=== PATIENT | female | born 1960 | race Caucasian/White ===

== ENCOUNTER 2022-09-28 18:51 | Emergency (ER) | payer BC, SELFPAY ==
[2022-09-28] VITALS (17 sets, daily range): BP systolic 103–141; BP diastolic 68–101; PULSE 99–124; RESP 14–29; TEMP 36.7; O2SAT 100
--- NOTE | ~2022-09-28 | XR_ITS ---
EXAMINATION: XR chest 2V Exam Date/Time: 09/28/2022 19:52 CDT HISTORY: SOB, CP Comparison: . RESULT: Lines, tubes, and devices: None. Lungs and pleura: Ill-defined somewhat nodular appearing opacity in the right lower lung. Cardiomediastinal silhouette: Stable. Other: No acute osseous or upper abdominal finding. IMPRESSION: Nodular opacity in the right lower lung may represent a focus of pneumonia. Recommend follow-up chest radiograph, after appropriate therapy, to ensure resolution. Reviewed, dictated and finalized at location K. IMPRESSION: Nodular opacity in the right lower lung may represent a focus of pneumonia. Rec ommenluis armando follow-up chest radiograph, after appropriate therapy, to ensure resolut ion.
--- NOTE | ~2022-09-28 | CT_ITS ---
EXAMINATION: CTA chest PE protocol DATE: 09/28/2022 21:16 INDICATION: dyspnea TECHNIQUE: Computed tomography angiography (CTA) of the chest was performed with 100 mL Omnipaque-350 intravenous contrast timed to evaluate the pulmonary arteries. Coronal maximum intensity projection 3D-reconstructions were created by the technologist. The dose-length product (DLP) was 189.26 mGy-cm. Automated exposure control and iterative reconstruction technique were employed. COMPARISON: X-ray chest, same date. FINDINGS: Lung parenchyma and airways: Biapical pleural scarring. Lobulated, 2.5 cm mass with spiculated margin s in the right lower lobe. Scattered calcified granulomas. Pleura: Unremarkable. Thoracic inlet, axillae and chest wall: Bilateral breast augmentation. Thoracic aorta: Normal. Mediastinum: Calcified right hilar nodes. Heart and pericardium: Normal. Coronary artery calcifications: Mild. Upper abdomen: Diffuse fatty infiltration of the liver. Left adrenal adenoma. Bones: No acute osseous finding. Pulmonary arteries: Study quality: Adequate. No pulmonary emboli detected. IMPRESSION: No CT evidence of acute pulmonary embolus. 2.5 cm right lower lobe nodule, suspicious for neoplastic disease, consider tissue sampling or PET/CT for further evaluation. Hepatic steatosis. Reviewed, dictated and finalized at location K. IMPRESSION: No CT evidence of acute pulmonary embolus. 2.5 cm right lower lobe nodule, susp icious for neoplastic disease, consider tissue sampling or PET/CT for further e valuation. Hepatic steatosis.
--- NOTE | 2022-09-28 19:24 | ECG_ITS ---
Measurements Intervals [place] Rate: 110 P: 68 NC: 167 QRS: 62 QRSD: 74 T: 42 QT: 347 QTc: 470 Interpretive Statements SINUS TACHYCARDIA NONSPECIFIC ST ABNORMALITY BORDERLINE ECG NO PREVIOUS ECG AVAILABLE FOR COMPARISON Electronically Signed On 09-29-2022 13:18:28 CDT by Joe Puente M.D.
[2022-09-28 19:45] LABS: Basophils Percent Auto 0.4 % (0.2-1.2); Eosinophils Percent Auto 0.7 % (0-4.4); Hematocrit 26.8 % (37.0-47.0); Hemoglobin 8.1 g/dL (12.0-15.0); Immature Granulocyte Absolute 0.01 K/mm3 (0.00-0.031); Immature Granulocyte Percent A 0.2 % (0-0.5); Lymphocytes Absolute Auto 2.02 K/mm3 (0.9-3.2); Lymphocytes Percent Auto 44.3 % (18.3-44.2); Mean Corpuscular HGB Conc 30.2 g/dl (32-36); Mean Corpuscular Hemoglobin 24.3 pg (26-34); Mean Corpuscular Volume 80.5 fl (80-100); Mean Platelet Volume 9.1 fl (7.4-10.4); Monocytes Absolute Auto 0.3 K/mm3 (0.1-0.6); Monocytes Percent Auto 6.6 % (2.6-8.5); Neutrophils Absolute Auto 2.2 K/mm3 (1.3-6.7); Neutrophils Percent Auto 47.8 % (45.5-73.1); Platelet Count Result 368 k/mm3 (150-375); Red Blood Count 3.33 M/mm3 (4.2-5.4); Red Cell Distribution Width 25.2 % (11.5-14.5); White Blood Count 4.6 K/mm3 (4.5-10.0)
[2022-09-28 19:54] LABS: Alanine Aminotransferase 40 U/L (6-35); Albumin Level 3.3 g/dL (3.5-5.1); Alkaline Phosphatase 109 U/L (38-126); Anion Gap 10 mmol/L (8-16); Aspartate Amino Transferase 59 U/L (14-36); Bilirubin,Total 0.3 mg/dL (0.2-1.3); Blood Urea Nitrogen 6 mg/dL (7-17); Calcium 8.1 mg/dL (8.4-10.2); Carbon Dioxide 19 mmol/L (22-30); Chloride 103 mmol/L (98-107); Estimated CRCL calculation 92 ml/min; Estimated Glomerular Filt Rate > 60; Glucose 84 mg/dL (65-110); Lipase 52 U/L (23-300); Potassium 3.7 mmol/L (3.4-5.0); Sodium 132 mmol/L (137-145)
[2022-09-28 19:58] LABS: INR 1.4
[2022-09-28 19:59] LABS: Partial Thromboplastin Time 36.8 SECONDS (22.3-36.8)
[2022-09-28 20:08] LABS: Anisocytosis 1+ (NORMAL); Ovalocytes 1+ (NORMAL); Platelet Estimate Adequate (Adequate); Target Cells 1+ (NORMAL)
[2022-09-28 20:09] LABS: Schistocytes None Seen (NORMAL)
[2022-09-28 20:39] LABS: Troponin I < 0.012 ng/mL (0.000-0.034)
[2022-09-28 20:42] LABS: NT Pro B Type Natriuretic Pept 67 pg/mL (19.9-100)
[2022-09-28] MEDS: MORPHINE SULFATE (*CRX) 4 MG/ML INJ IV PUSH (20:51)
[2022-09-28] MEDS: ONDANSETRON INJ 4 MG/2 ML VIAL IV PUSH (22:14)
[2022-09-28 22:51] LABS: Troponin I < 0.012 ng/mL (0.000-0.034)
[2022-09-29 00:05] VITALS: PULSE 113; RESP 19
[2022-09-29 00:20] VITALS: BP 132/86; PULSE 112; RESP 18; O2SAT 100
--- NOTE | 2022-09-29 00:29 | ED.GENADULT ---
HPI - General Adult General Chief complaint: Shortness of Breath/Dyspnea Stated complaint: sob x2 months Time Seen by Provider: 09/28/22 20:04 History of Present Illness HPI narrative: Patient 62-year-old female who presents the emergency department with chief complaint of chest pain and shortness of breath. Patient reports has been having chest pain and shortness of breath for some time reports has been admitted at [facility] has been in the hospital for several days and discharged home and then went back to the emergency department and was discharged the patient reports that she came to our facility today because EMS would not transport her to [facility] as she requested The patient reports she is currently on blood thinners and has not missed any doses of her medication. Related Data Allergies Allergy/AdvReac Type Severity Reaction Status Date / Time No Known Allergies Allergy Verified 09/28/22 20:41 Review of Systems Review of Systems: A 10 system review of systems was completed on the patient and is negative except for what is stated in the HPI. Nursing and ancillary documentation was reviewed. Exam Narrative: GENERAL: Well-appearing, well-nourished, and in no acute distress. HEAD: Normocephalic, atraumatic. EYES: PERRLA and EOMI. ENT: Nares clear, no rhinorrhea or epistaxis. Mucous membranes moist. NECK: Supple. CHEST: Clear to auscultation. No respiratory distress. HEART: Regular rate and rhythm. No murmur heard. Normal peripheral pulses. ABDOMEN: Soft, nontender, nondistended, normal active bowel sounds. EXTREMITIES: Normal range of motion. No edema. SKIN: Warm, dry, no rash. NEURO: No focal deficits. Alert and oriented x3. PSYCH: Normal mood and affect. Course Vital Signs Vital signs: Vital Signs Temperature 36.7 C 09/28/22 19:17 Pulse Rate 114 H 09/28/22 19:17 Respiratory Rate 18 09/28/22 19:17 Blood Pressure 103/68 09/28/22 19:17 Pulse Oximetry 100 09/28/22 19:17 Oxygen Delivery Room Air 09/28/22 19:17 Temperature 36.7 C 09/28/22 19:17 Pulse Rate 112 H 09/29/22 00:20 Respiratory Rate 18 09/29/22 00:20 Blood Pressure 132/86 09/29/22 00:20 Pulse Oximetry 100 09/29/22 00:20 Oxygen Delivery Room Air 09/28/22 19:17 Medical Decision Making MDM Narrative Medical decision making narrative: Differential diagnosis includes ACS, pulmonary embolism, pneumothorax, Laboratory studies were obtained which showed a white count of 4.6 hemoglobin 8.1 electrolytes were within normal limits troponin was negative for 2 sets in the emergency department lipase was 52 CTA of the chest showed no evidence of pulmonary embolism did show evidence of a nodule that was concerning for neoplasm. Records were obtained from [facility] which showed the patient have a hemoglobin of 8.7 and her most recent admission therefore the patient has not had a significant change in her blood counts. The patient recently had had a pulmonary embolism but is currently not showing any evidence of PE The patient will be discharged home to follow-up with her primary care provider Vital Signs Vital Signs: Vital Signs Temperature 36.7 C 09/28/22 19:17 Pulse Rate 114 H 09/28/22 19:17 Respiratory Rate 18 09/28/22 19:17 Blood Pressure 103/68 09/28/22 19:17 Pulse Oximetry 100 09/28/22 19:17 Oxygen Delivery Room Air 09/28/22 19:17 Temperature 36.7 C 09/28/22 19:17 Pulse Rate 112 H 09/29/22 00:20 Respiratory Rate 18 09/29/22 00:20 Blood Pressure 132/86 09/29/22 00:20 Pulse Oximetry 100 09/29/22 00:20 Oxygen Delivery Room Air 09/28/22 19:17 Lab Data 09/28/22 19:38 09/28/22 19:38 Labs: Lab Results 09/28/22 09/28/22 09/28/22 Range/Units 19:36 19:38 22:11 WBC 4.6 (4.5-10.0) K/mm3 RBC 3.33 L (4.2-5.4) M/mm3 Hgb 8.1 L (12.0-15.0) g/dL Hct 26.8 L (37.0-47.0) % MCV 80.5 (80-100) fl MCH 24.3 L (2
[2022-09-29 00:59] VITALS: BP 122/98; PULSE 110; RESP 16; O2SAT 100
== END 2022-09-29 01:01 | disposition home or self-care (01) ==
PROVIDERS: Emergency Provider Emergency Medicine
DX: R07.9 Chest pain, unspecified (principal); G89.29 Other chronic pain; R91.1 Solitary pulmonary nodule; R00.0 Tachycardia, unspecified; Z79.01 Long term (current) use of anticoagulants
CPT/HCPCS: 36415; 71046; 71275; 80053; 83690; 83880; 84484; 85025; 85610; 85730; 93005; 96374; 96375; 99284; J2270; J2405; Q9967

== ENCOUNTER 2024-02-26 14:52 | Inpatient (IN) | payer BC, SELFPAY ==
[2024-02-26] VITALS (8 sets, daily range): BP systolic 101–202; BP diastolic 77–148; PULSE 82–127; RESP 15–20; TEMP 36.5–36.6; O2SAT 95–100; BMI 21.3
--- NOTE | ~2024-02-26 | CT_ITS ---
EXAMINATION: CT brain wo con DATE: 02/26/2024 15:56 INDICATION: Seizure. TECHNIQUE: Computed tomography (CT) of the head was performed without intravenous contrast. The mA wa s adjusted according to patient size. Iterative reconstruction technique was employed. The dose-lengt h product was 605.33 mGy-cm. COMPARISON: None FINDINGS: There is no intracranial hemorrhage, acute infarction, or abnormal intracranial mass lesion . The ventricles are normal in size. There is mild mucosal thickening in the paranasal sinuses. The o rbits are normal. There is a trace right mastoid effusion. IMPRESSION: 1. Normal brain. Reviewed, dictated and finalized at location A. ERCIAL MANAGEMENT ACCOUNTANT IMPRESSION: 1. Normal brain.
--- NOTE | ~2024-02-26 | XR_ITS ---
EXAMINATION: XR chest 2V DATE: 02/26/2024 16:02 INDICATION: Seizure TECHNIQUE: frontal and lateral views of the chest were obtained. COMPARISON: Chest radiograph and CT dated 09/28/2022 FINDINGS: The lungs are clear with no focal airspace opacities, pulmonary edema, pleural effusion or pneumothor ax. Heart size is normal with small bilateral paracardial fat pads. Calcified right hilar lymph nodes consistent with old granulomatous disease. Mild thoracic spondylosis. IMPRESSION: 1. No acute cardiopulmonary disease. Reviewed, dictated and finalized at location B. ER MAKING SUPERVISOR
--- NOTE | ~2024-02-26 | XR_ITS ---
HISTORY: pain COMPARISON: None TECHNIQUE: 4 views of the performed FINDINGS: Subacute fracture of the proximal second and third metatarsal is suspected. Subacute fracture of the distal third metatarsal is also suspected Diffuse bony demineralization is present. Moderate soft tissue swelling forefoot is noted. IMPRESSION: Subacute fractures of the proximal second and third tarsal and distal fourth metatarsal are suspected for which traumatic history is needed. Diffuse bony demineralization and forefoot soft tissue swelling. Reviewed, dictated and finalized at location A. GIRDLER IMPRESSION: Subacute fractures of the proximal second and third tarsal and dis mary fourth metatarsal are suspected for which traumatic history is needed. Diffuse bony demineralization and forefoot soft tissue swelling.
[2024-02-26] MEDS: ONDANSETRON INJ 4 MG/2 ML VIAL IV PUSH (15:17)
--- NOTE | 2024-02-26 15:37 | ECG_ITS ---
Test Date: 2024-02-26 16:30:15 Measurements Intervals [place] Rate: 133 P: -40 MD: 115 QRS: 51 QRSD: 85 T: -43 QT: 349 QTc: 521 Interpretive Statements SINUS OR ECTOPIC ATRIAL TACHYCARDIA WITH SHORT MD INTERVAL LEFT VENTRICULAR HYPERTROPHY AND ST-T CHANGE ST-T WAVE ABNORMALITY IN ANTEROLAT/INF LEADS- CONSIDER ISCHEMIA BASELINE ARTIFACT- I, II, III, AVR, AVL, AVF, V1-V2 ABNORMAL ECG No previous ECG available for comparison Electronically Signed On 02-26-2024 18:35:58 [employer] AND BUILDING DECORATOR by Bull Machado D.O.
[2024-02-26] MEDS: LORazepam INJ (*CRX) 2 MG/ML VIAL IV PUSH (16:12)
--- NOTE | 2024-02-26 16:14 | PC.NURSE ---
This RN walked into pt. room and found pt. having a tonic clonic seizure. Seizure pads already in place and suction set up. Pt immediately rolled to L. side and this RN called for help. Md Craven and multiple RNs at bedside. 02 remained >95% on RA for entirety of seizure. mouth suctioned. Pt. bleeding from mouth. See MAR for interventions.
--- NOTE | 2024-02-26 16:37 | ED.SEIZURE ---
HPI - Seizure General Chief Complaint: Seizure Stated Complaint: Seizure Time Seen by Provider: 02/26/24 15:27 History of Present Illness HPI Narrative: patient is a 63-year-old female who presents ER after having a seizure at home. Witnessed by son. Lasted 2 minutes. Patient has history of seizures but is unsure what medication she has taken in the past. She does reports she is drinking alcohol. She has history of alcohol abuse. Unsure if she has alcohol withdrawal seizures. Patient orient x4 here but then had a 2nd seizure that lasted another minute and half. She received Ativan. She did have tongue biting. Prior to seizing patient is having nausea vomiting that she reports has been going on throughout the day. patient reports history of lung cancer that was treated with chemotherapy years ago she no longer requires any intervention. Related Data Home Medications Medication Instructions Recorded Confirmed No Home Medications 02/26/24 02/26/24 Allergies Allergy/AdvReac Type Severity Reaction Status Date / Time No Known Allergies Allergy Verified 02/26/24 20:38 Review of Systems Review of Systems: All systems reviewed & are unremarkable except as noted in HPI and below Constitutional: Constitutional: Reports no additional constitutional complaints ENT: Reports system reviewed and no additional complaints, except as documented Cardiovascular: Cardiovascular: Reports no additional cardiovascular complaints Respiratory: Respiratory: Reports no additional respiratory complaints Gastrointestinal: Gastrointestinal: Reports no additional gastrointestinal complaints [facility] Past Medical History Medical History (Updated 02/26/24 @ 22:29 by Dallin Craven MD) Alcohol abuse Lung cancer Seizures Family History Family History (Updated 02/26/24 @ 20:32 by Erin Leal RN) Father Cancer Mother Hypertension Social History Social History Smoking packs per day: 0.5 Smoking cigarettes per day: 10.0 Years smoked: 30 Smoking pack-years: 15.00 Smoking status: Current every day smoker Alcohol intake: current Drinks per week: 40 Substance use: former Substance use type: marijuana Do You Feel Safe in your Home?: Yes Lack of Transportation: YES Lack of Food: Sometimes True Current Housing: I Have Housing Concerned About Future Housing: No Difficulty Paying Gas/Electric Bills: No Difficulty Paying for Meds: No Currently Unemployed: No Education: High School Diploma/GED Difficulty w/ Childcare or Family Care: No Spiritual care concerns: No Exam Narrative: GENERAL: chronically ill-appearing, well-nourished, and in no acute distress. HEAD: Normocephalic, atraumatic. EYES: PERRL and EOMI. ENT: Mucous membranes moist. tongue bruising and abrasions bilaterally NECK: Supple. CHEST: Clear to auscultation. No respiratory distress. HEART: Tachycardic regular. Normal peripheral pulses. ABDOMEN: Soft, nontender, nondistended,. EXTREMITIES: Normal range of motion. No edema. SKIN: Warm, dry, no rash. NEURO: Alert and oriented x3. Course Course Emergency Course: Suspect withdrawal seizures. After 2nd seizure patient is now awake alert and oriented. Potassium critically low and replaced orally and through IV K rider. Patient received a L of fluid and BMP will be recheck. Discussed case with the motor vehicle emissions inspector as well as Nephrology patient will go to the unit initially. Patient with abnormal EKG but no chest pain. Patient initially had blood pressures in the 200s but it began to go down. Suspect patient is actually quite dry and is having strain pattern. Troponin added on. discussed case with Neurology as well feels it would be best to manage patient's withdrawal into not giving antiepileptics at this time. Vital Signs Vital signs: Vital Signs Temperature 97.7 F 02/26/24 15:04 Pulse Rate 122 H 02/26/24 15:04 Respiratory Rate 16 02/26/24 15:04 Blood Pressure 202/123 H 02/26/24 15:04 Pulse Oximetry 100 02/26/24 15:04 Temperature 97.8 F 02/26/24 20:30 Pulse Rate 90 02/26/24 22:00 Respiratory Rate 20 02/26/24 22:00 Blood Pressure 101/77 02/26/24 22:00 Pulse Oximetry 98 02/26/24 22:00 Oxygen Delivery Room Air 02/26/24 20:30 MDM - Seizure Lab Data 02/26/24 16:18 02/26/24 18:42 Labs: Lab Results 02/26/24 02/26/24 02/26/24 Range/Units 16:18 16:42 18:42 WBC 11.8 H (4.5-10.0) K/mm3 RBC 4.48 (4.2-5.4) M/mm3 Hgb 14.6 D (12.0-15.0) g/dL Hct 40.7 (37.0-47.0) % MCV 90.8 (80-100) fl MCH 32.6 (26-34) pg MCHC 35.9 (32-36) g/dl RDW 12.5 (11.5-14.5) % Plt Count 283 (150-375) k/mm3 MPV 10.2 (7.4-10.4) fl Immature Gran % (Auto) 0.8 H (0-0.5) % Neut % (Auto) 82.5 H (45.5-73.1) % Lymph % (Auto) 6.7 L (18.3-44.2) % [place] % (Auto) 9.0 H (2.6-8.5) % Eos % (Auto) 0.7 (0-4.4) % Baso % (Auto) 0.3 (0.2-1.2) % Lymph # (Auto) 0.79 L (0.9-3.2) K/mm3 [place] # (Auto) 1.1 H (0.1-0.6) K/mm3 Eos # (Auto) 0.1 (0-0.3) K/mm3 Baso # (Auto) 0.0 (0.0-0.1) K/mm3 Abs Immat Gran (auto) 0.09 H (0.00-0.031) K/mm3 Absolute Neuts (auto) 9.7 H (1.3-6.7) K/mm3 Absolute Nucleated RBC 0.000 (0.0-0.012) K/mm3 Nucleated RBC % 0.0 (0.0-0.2) % Sodium 118 L* 120 L (137-145) mmol/L Potassium 2.7 L* 3.1 L (3.4-5.0) mmol/L Chloride 78 L 79 L (98-107) mmol/L Carbon Dioxide 22 19 L (22-30) mmol/L Anion Gap 18 H 22 H (4-12) mmol/L BUN 15 D 15 (7-17) mg/dL Creatinine 0.80 0.70 (0.7-1.0) mg/dL Estim Creat Clear Calc 59 67 ml/min Estimated GFR > 60 > 60 (59 - ) Glucose 188 H 172 H (65-110) mg/dL Calcium 10.6 H 10.7 H (8.4-10.2) mg/dL Total Bilirubin 1.3 (0.2-1.3) mg/dL AST 50 H (14-36) U/L ALT 24 (6-35) U/L Alkaline Phosphatase 91 (38-126) U/L Total Protein 9.0 H (6.3-8.2) g/dL Albumin 5.3 H (3.5-5.1) g/dL Urine Color Dark yellow (Yellow) Urine Appearance Clear (Clear) Urine pH 5.5 (5.0-9.0) Ur Specific [place] 1.022 (1.001-1.035) Urine Protein 4+ H (Negative) mg/dL Urine Glucose (UA) Negative (Negative) mg/dL Urine Ketones 1+ H (Negative) mg/dL Ur Blood (Man) Non-hemolyzed trace H (Negative) Urine Nitrate Negative (Negative) Urine Bilirubin Negative (Negative) Urine Urobilinogen 1.0 (<2.0) mg/dL Add Ur Microanalysis Reviewed Leukocyte Esterase Rfl Trace H (Negative) RICHARD/UL Urine RBC 3-5 H (0-2) /hpf Urine WBC 21-50 H (0-3) /hpf Ur Squamous Epith Cells None seen (Few) /hpf Urine Bacteria None seen /hpf Urine Casts 6-10 Hyaline Casts Present (None) /lpf Urine Opiates Screen Negative (Negative) Urine Methadone Screen Negative (Negative) Ur Barbiturates Screen Negative (Negative) Ur Phencyclidine Scrn Negative (Negative) Ur Amphetamine Screen Negative (Negative) U Benzodiazepines Scrn Negative (Negative) Urine Cocaine Screen Negative (Negative) U Cannabinoids Screen Positive A (Negative) Ethyl Alcohol < 10 (<10) mg/dL Imaging Data Radiologist's impression: ITS Impressions Head CT 02/26/24 16:02 IMPRESSION: 1. Normal brain. Chest X-Ray 02/26/24 16:04 IMPRESSION: 1. No acute cardiopulmonary disease. ECG Data EKG #1: ECG completion date: 02/26/24 ECG completion time: 16:30 EKG Interpretation: tachycardia (133), sinus rhythm, non-specific ST changes, normal QRS and other ( LVH with strain pattern) Critical Care Time Critical Care Time Critical Care Time: Yes Total Critical Care Time: 35 Discharge Plan Discharge Clinical Impression: Alcohol withdrawal, Seizure, Acute hyponatremia, Acute hypokalemia Patient Disposition: Still a Patient Condition: Serious
[2024-02-26 16:38] LABS: Basophils Percent Auto 0.3 % (0.2-1.2); Eosinophils Absolute Auto 0.1 K/mm3 (0-0.3); Eosinophils Percent Auto 0.7 % (0-4.4); Hematocrit 40.7 % (37.0-47.0); Hemoglobin 14.6 g/dL (12.0-15.0); Immature Granulocyte Absolute 0.09 K/mm3 (0.00-0.031); Immature Granulocyte Percent A 0.8 % (0-0.5); Lymphocytes Absolute Auto 0.79 K/mm3 (0.9-3.2); Lymphocytes Percent Auto 6.7 % (18.3-44.2); Mean Corpuscular HGB Conc 35.9 g/dl (32-36); Mean Corpuscular Hemoglobin 32.6 pg (26-34); Mean Corpuscular Volume 90.8 fl (80-100); Mean Platelet Volume 10.2 fl (7.4-10.4); Monocytes Absolute Auto 1.1 K/mm3 (0.1-0.6); Neutrophils Absolute Auto 9.7 K/mm3 (1.3-6.7); Neutrophils Percent Auto 82.5 % (45.5-73.1); Platelet Count Result 283 k/mm3 (150-375); Red Blood Count 4.48 M/mm3 (4.2-5.4); Red Cell Distribution Width 12.5 % (11.5-14.5); White Blood Count 11.8 K/mm3 (4.5-10.0)
[2024-02-26 16:47] LABS: Ethanol < 10 mg/dL (<10)
[2024-02-26] MEDS: SODIUM CHLORIDE 0.9% IV 1,000 ML 999 ML IV CONT (16:48)
[2024-02-26 17:03] LABS: Alanine Aminotransferase 24 U/L (6-35); Albumin Level 5.3 g/dL (3.5-5.1); Alkaline Phosphatase 91 U/L (38-126); Anion Gap 18 mmol/L (4-12); Aspartate Amino Transferase 50 U/L (14-36); Bilirubin,Total 1.3 mg/dL (0.2-1.3); Blood Urea Nitrogen 15 mg/dL (7-17); Calcium 10.6 mg/dL (8.4-10.2); Carbon Dioxide 22 mmol/L (22-30); Chloride 78 mmol/L (98-107); Estimated CRCL calculation 59 ml/min; Estimated Glomerular Filt Rate > 60; Glucose 188 mg/dL (65-110); Potassium 2.7 mmol/L (3.4-5.0); Sodium 118 mmol/L (137-145)
[2024-02-26 17:04] LABS: Add Urine Microscopic? YES; Appearance Urine Clear (Clear); Bacteria Urine None Seen /hpf; Bilirubin Urine Negative (Negative); Blood Urine Non-Hemolyzed Trace (Negative); Color Urine Dark Yellow (Yellow); Glucose Urine UA Negative (Negative); Hyaline Casts Urine Present /lpf; Ketones Urine 1+ mg/dL (Negative); Leukocyte Esterase Ur Trace LEU/UL (Negative); Need Manual Microscopic Reviewed; Nitrate Urine Negative (Negative); Protein Urine 4+ mg/dL (Negative); Specific Grav Ur 1.022 (1.001-1.035); Squamous Epithelial Cell Urine None Seen /hpf (Few); WBC Urine 21-50 /hpf (0-3); pH Urine 5.5 (5.0-9.0)
[2024-02-26 17:09] LABS: Amphetamine Screen Urine Negative (Negative); Barbiturate Screen Urine Negative (Negative); Benzodiazepines Screen Urine Negative (Negative); Cannabinoid Screen Urine Positive (Negative); Cocaine Screen Urine Negative (Negative); Methadone Screen Urine Negative (Negative); Opiate Screen Urine Negative (Negative); Phencyclidine Screen Urine Negative (Negative)
[2024-02-26] MEDS: POTASSIUM CHLORIDE 20 MEQ ER TABLET 40 MEQ PO (17:25)
[2024-02-26] MEDS: diazePAM INJ (*CRX) 10 MG/2 ML SYRINGE 5 MG IV PUSH (17:27)
[2024-02-26] MEDS: POTASSIUM CHLORIDE INJ 40 MEQ in SODIUM CHLORIDE 0.9% IV 500 ML 130 MEQ IVPB (17:36)
[2024-02-26 19:16] LABS: Anion Gap 22 mmol/L (4-12); Blood Urea Nitrogen 15 mg/dL (7-17); Calcium 10.7 mg/dL (8.4-10.2); Carbon Dioxide 19 mmol/L (22-30); Chloride 79 mmol/L (98-107); Estimated CRCL calculation 67 ml/min; Estimated Glomerular Filt Rate > 60; Glucose 172 mg/dL (65-110); Potassium 3.1 mmol/L (3.4-5.0); Sodium 120 mmol/L (137-145)
--- NOTE | 2024-02-26 19:34 | PC.NURSE ---
This RN unable to collect 2nd set of blood cultures. Jeanne VAN notified. Phlebotomy notified that pt. needs 2nd set.
--- NOTE | 2024-02-26 19:39 | PC.NURSE ---
RN unable to arouse patient to complete admission questions at present; RN placed two calls to patient's son, Salvatore, with no answer and was unable to leave a message r/t automated message stating the the user's voicemail box was full. RN attempted to wake patient again with no response. Reported to MERINGUER Tracie that admission is unable to be completed at this time; unable to recall patient history.
--- NOTE | 2024-02-26 20:00 | PC.NURSE ---
HITESH Hodges notified that ED staff were unable to acquire blood cultures.
--- NOTE | 2024-02-26 20:40 | PC.NURSE ---
Patient presents as awake and alert upon arrival to ICU. Admission questions completed via patient; Patient denies use of any home medication; Patient denies allergies.
--- NOTE | 2024-02-26 20:43 | ADMGEN ---
This patient, Candace Melo, was admitted to Intensive Care Unit-6 at 2015. Patient/family oriented to hospital policies and general routines including ID bracelet, bed and alarms, visiting hours, pain management, procedures, bathroom and other care routines, personal items, smoking policy, room service/diet, and visiting hours. Information on how to activate the Rapid Response Team has been discussed. Patient/Family are encouraged to report perceived risks to care and to ask questions if they do not understand what they are told or what they should do.
[2024-02-26] MEDS: SODIUM CHLORIDE 0.9% IV 1,000 ML 125 ML IV CONT (21:13)
[2024-02-26 22:14] LABS: Magnesium 2.1 mg/dL (1.6-2.3)
--- NOTE | 2024-02-26 23:35 | P.HP_ITS ---
H&P: HPI History of Present Illness Date/Time: 02/26/24 23:35 Chief Complaint: Seizure Narrative: 63-year-old female with past medical history lung cancer with partial pneumonectomy, anxiety and depression and history of chronic alcohol abuse who presented to the ER with witnessed tonic clonic seizure. Source of information is from ER records/ER physician report patient herself is only alert oriented to her name in cannot provide any meaningful history. The patient was witnessed to have approximately 2 minute long tonic clonic seizure by her son who lives with her. She tells me that she has had a history of prior seizures 2 times in the past but she cannot tell me when these episodes occurred or if she was on any seizure medications in the past. Review of patient's external electronic medications from pharmacy demonstrate prior prescriptions for Librium in October but no listed seizure medications. The patient tells me that she drinks alcohol of varying amounts. She is vague and states that she drinks ?some?. She had evidently reported to the ER providers that she drinks about 6 beers a day. The patient was reportedly alert orient x4 in the ER but had a witnessed tonic clonic seizure in the ER as well lasting 1.5 minutes. She received Ativan. She did have evidence of tongue trauma after the 2nd seizure. Reportedly had prior to her 2nd seizure the patient did have some vomiting that was witnessed and had evidently been having some vomiting at home. At the time my evaluation the cuca macias actually denied having any recent nausea or vomiting. However the patient also at the time my evaluation which was several hours after her seizure could not tell me what city she lived in. She could not tell me her date of or the current date. When I asked her what doctor she saw in the past for her seizures she gave her own last name. Labs performed in the ER demonstrated a critically low sodium at 01:18 with repeat sodium of 120 approximately 3 hours later. Review of Systems Review of Systems: ROS unobtainable: Yes unobtainable due to mental status PMFSH Past Medical History Medical History (Updated 02/27/24 @ 08:19 by eMg Ortega DO) Alcohol abuse Lung cancer Seizures Surgical History Surgical History (Updated 02/26/24 @ 23:52 by Meg Ortega DO) History of pneumonectomy Family History Family History Father Cancer Mother Hypertension Social History Social History (Updated 02/27/24 @ 08:06 by Meg Ortega DO) Social History: Patient reports that she lives with her son Salvatore. She has 3 children. She has history of chronic alcohol abuse. She is vague in her report of the amount of alcohol that she drinks. She denied illicit substance use but urine drug screen positive for marijuana. She is a current smoker. She cannot tell me how much she smokes daily. Code status: Full code Surrogate decision maker: Salvatore (son) Smoking packs per day: 0.5 Smoking cigarettes per day: 10.0 Years smoked: 30 Smoking pack-years: 15.00 Smoking status: Current every day smoker Alcohol intake: current Drinks per week: 40 Substance use: former Substance use type: marijuana Do You Feel Safe in your Home?: Yes Lack of Transportation: YES Lack of Food: Sometimes True Current Housing: I Have Housing Concerned About Future Housing: No Difficulty Paying Gas/Electric Bills: No Difficulty Paying for Meds: No Currently Unemployed: No Education: High School Diploma/GED Difficulty w/ Childcare or Family Care: No Spiritual care concerns: No Meds Home Medications and Allergies Home Medications Medication Instructions Recorded Confirmed Type No Home Medications 02/26/24 02/26/24 History Allergies Allergy/AdvReac Type Severity Reaction Status Date / Time No Known Allergies Allergy Verified 02/26/24 20:38 Vital Signs Vital Signs - 24 hr 02/26/24 15:04 02/26/24 15:16 02/26/24 16:17 Temperature 97.7 F Pulse Rate 122 H 127 H Respiratory Rate 16 19 Blood Pressure 202/123 H 200/148 H Pulse Oximetry 100 99 97 Oxygen Delivery Room Air 02/26/24 16:40 02/26/24 17:28 02/26/24 17:35 Temperature Pulse Rate 119 H 101 H Respiratory Rate 16 20 Blood Pressure 176/109 H Pulse Oximetry 99 95 Oxygen Delivery Room Air 02/26/24 18:38 02/26/24 20:30 02/26/24 20:30 Temperature 97.8 F Pulse Rate 115 H 99 Respiratory Rate 15 20 Blood Pressure 135/97 H 163/119 H Pulse Oximetry 96 97 Oxygen Delivery Room Air 02/26/24 20:30 02/26/24 22:00 02/26/24 22:00 Temperature Pulse Rate 89 82 90 Respiratory Rate 20 Blood Pressure 101/77 Pulse Oximetry 98 Oxygen Delivery 02/26/24 23:17 Temperature Pulse Rate Respiratory Rate Blood Pressure Pulse Oximetry Oxygen Delivery Room Air Exam Narrative: Weight 60 kg BMI 21.3 Const: Other: No acute distress, disheveled, poor hygiene, well-developed well-nourished HENMT: Other: Mucous membranes are tacky, evidence of trauma to the tongue without active bleeding, head is normocephalic atraumatic Eyes: Other: Pupils are equal and reactive, no scleral icterus extraocular movements are intact although patient does have difficulty following instructions for neurologic exam Neck: Other: No JVD, irregular thyroid Resp: Other: Decreased breath sounds bilaterally, no increased work of breathing Cardio: Other: Mildly tachycardic, regular rhythm, 2+ bilateral radial pedal pulses GI: Other: Soft, distended, nontender, positive bowel sounds Skin: Other: Diaphoretic, warm to touch, bruising to the left 5th toe Neuro: Other: Patient is alert oriented to name only, she cannot state her date of or how old she is, as she does not know that name of the hospital and states that she does not know what town she lives in, she does not have any obvious tremor and does not have any difficulty with heel to durbin or [id number], speech is clear but slow, cranial nerves 2-12 appear to be grossly intact but there is some difficulty with the exam due to patient having issues with confusion and following commands. Extrem: Other: No cyanosis, no edema, mild clubbing to nail beds Psych: Other: Awake, alert to self, Confused but calm, poor judgment and insight H&P: Results Labs Labs: Laboratory Tests 02/26/24 16:18 02/26/24 18:42 02/26/24 02/26/24 02/26/24 16:18 16:42 18:42 WBC 11.8 H RBC 4.48 Hgb 14.6 D Hct 40.7 MCV 90.8 MCH 32.6 MCHC 35.9 RDW 12.5 Plt Count 283 MPV 10.2 Immature Gran % (Auto) 0.8 H Neut % (Auto) 82.5 H Lymph % (Auto) 6.7 L [place] % (Auto) 9.0 H Eos % (Auto) 0.7 Baso % (Auto) 0.3 Lymph # (Auto) 0.79 L [place] # (Auto) 1.1 H Eos # (Auto) 0.1 Baso # (Auto) 0.0 Abs Immat Gran (auto) 0.09 H Absolute Neuts (auto) 9.7 H Absolute Nucleated RBC 0.000 Nucleated RBC % 0.0 Sodium 118 L* 120 L Potassium 2.7 L* 3.1 L Chloride 78 L 79 L Carbon Dioxide 22 19 L Anion Gap 18 H 22 H BUN 15 D 15 Creatinine 0.80 0.70 Estim Creat Clear Calc 59 67 Estimated GFR > 60 > 60 Glucose 188 H 172 H Calcium 10.6 H 10.7 H Phosphorus Magnesium Total Bilirubin 1.3 AST 50 H ALT 24 Alkaline Phosphatase 91 Troponin I Total Protein 9.0 H Albumin 5.3 H Urine Color Dark yellow Urine Appearance Clear Urine pH 5.5 Ur Specific [place] 1.022 Urine Protein 4+ H Urine Glucose (UA) Negative Urine Ketones 1+ H Ur Blood (Man) Non-hemolyzed trace H Urine Nitrate Negative Urine Bilirubin Negative Urine Urobilinogen 1.0 Add Ur Microanalysis Reviewed Leukocyte Esterase Rfl Trace H Urine RBC 3-5 H Urine WBC 21-50 H Ur Squamous Epith Cells None seen Urine Bacteria None seen Urine Casts 6-10 Hyaline Casts Present Urine Opiates Screen Negative Urine Methadone Screen Negative Ur Barbiturates Screen Negative Ur Phencyclidine Scrn Negative Ur Amphetamine Screen Negative U Benzodiazepines Scrn Negative Urine Cocaine Screen Negative U Cannabinoids Screen Positive A Ethyl Alcohol < 10 02/26/24 02/26/24 02/26/24 21:44 21:44 21:44 WBC RBC Hgb Hct MCV MCH MCHC RDW Plt Count MPV Immature Gran % (Auto) Neut % (Auto) Lymph % (Auto) [place] % (Auto) Eos % (Auto) Baso % (Auto) Lymph # (Auto) [place] # (Auto) Eos # (Auto) Baso # (Auto) Abs Immat Gran (auto) Absolute Neuts (auto) Absolute Nucleated RBC Nucleated RBC % Sodium Potassium Chloride Carbon Dioxide Anion Gap BUN Creatinine Estim Creat Clear Calc Estimated GFR Glucose Calcium Phosphorus 3.0 Cancelled Magnesium 2.1 Cancelled Total Bilirubin AST ALT Alkaline Phosphatase Troponin I 0.440 H* Total Protein Albumin Urine Color Urine Appearance Urine pH Ur Specific [place] Urine Protein Urine Glucose (UA) Urine Ketones Ur Blood (Man) Urine Nitrate Urine Bilirubin Urine Urobilinogen Add Ur Microanalysis Leukocyte Esterase Rfl Urine RBC Urine WBC Ur Squamous Epith Cells Urine Bacteria Urine Casts Hyaline Casts Urine Opiates Screen Urine Methadone Screen Ur Barbiturates Screen Ur Phencyclidine Scrn Ur Amphetamine Screen U Benzodiazepines Scrn Urine Cocaine Screen U Cannabinoids Screen Ethyl Alcohol Impressions Head CT 02/26/24 16:02 (personally reviewed and interpreted agree with radiologic interpretation) IMPRESSION: 1. Normal brain. Chest X-Ray 02/26/24 16:04 (personally reviewed and interpreted agree with radiologic interpretation) IMPRESSION: 1. No acute cardiopulmonary disease. EKG: Personally reviewed and interpreted agree with cardiology interpretation which is listed below. Measurements Intervals [place] Rate: 133 P: -40 LA: 115 QRS: 51 QRSD: 85 T: -43 QT: 349 QTc: 521 Interpretive Statements SINUS OR ECTOPIC ATRIAL TACHYCARDIA WITH SHORT LA INTERVAL LEFT VENTRICULAR HYPERTROPHY AND ST-T CHANGE ST-T WAVE ABNORMALITY IN ANTEROLAT/INF LEADS- CONSIDER ISCHEMIA BASELINE ARTIFACT- I, II, III, AVR, AVL, AVF, V1-V2 ABNORMAL ECG No previous ECG available for comparison Assessment and Plan Assessment and plan (1) Alcohol withdrawal: Qualifiers: Complication of substance-induced condition: uncomplicated Qualified Code(s): F10.930 - Alcohol use, unspecified with withdrawal, uncomplicated Code(s): F10.939 - Alcohol use, unspecified with withdrawal, unspecified Status: Acute (2) Seizure: Code(s): R56.9 - Unspecified convulsions Status: Acute (3) Acute hyponatremia: Code(s): E87.1 - Hypo-osmolality and hyponatremia Status: Acute (4) Acute hypokalemia: Code(s): E87.6 - Hypokalemia Status: Acute (5) Elevated troponin: Code(s): R79.89 - Other specified abnormal findings of blood chemistry Status: Acute (6) Hypercalcemia: Code(s): E83.52 - Hypercalcemia Status: Acute (7) Hyperglycemia: Code(s): R73.9 - Hyperglycemia, unspecified Status: Acute (8) QT prolongation: Code(s): R94.31 - Abnormal electrocardiogram [ECG] [EKG] Status: Acute Plan Patient is at to seizures likely due to alcohol withdrawal however some component seizure due to hyponatremia cannot be ruled out. Patient has been placed on seizure precautions durbin being monitored in the ICU. Will continue neuro checks q.2-4 hours. Will continue check CIWA scores and treat as appropriate with Ativan p.r.n. and Librium scheduled. Will provide thiamine supplementation. Will check B12 and folic acid levels. Patient does have marked hyponatremia. Hyponatremia is likely due to combination of beer proteinemia and hypovolemic hyponatremia. Serial sodium levels were to be monitored. However, 1 of the serial draws was not obtained. Patient had increase in sodium of value of 10 in a 12 hour interval. Normal saline has subsequently been discontinued and D5 water as been ordered D5 water was ordered around 06:00. Subsequently a will repeat sodiums starting at 10:00.. Orders have been placed for serial sodium monitoring q.4 hours. Nephrology has been consulted. Awaiting further recommendations. Patient did have some mild hypokalemia and received oral supplementation in the ER. Repeat potassium level had improved but was somewhat lower end of normal. Will give 1 more dose of oral potassium supplementation. Magnesium and phosphorus levels were obtained and were normal. Patient has hypercalcemia likely due to hypovolemia however will check vitamin-D level, and PTH to rule out other metabolic considerations. The patient was mildly hyperglycemic. Will check A1c with a.m. labs. Patient had abnormal EKG and subsequent had on troponin was mildly elevated but repeat troponin is trending down. Patient's EKG did demonstrate elevated QT interval at 05:21. Possibly due to electrolyte disturbances. Will monitor telemetry closely and avoid QT prolonging medications. 65 minute spent critical care activities. Due to a high probability of clinically significant, life threatening deterioration, the patient required my highest level of preparedness to intervene emergently and I personally spent this critical care time directly and personally managing the patient. This critical care time included obtaining a history; examining the patient; pulse oximetry; ordering and review of studies; arranging urgent treatment with development of a management plan; evaluation of patient's response to treatment; frequent reassessment; and discussions with other providers. It was exclusive of separately billable procedures and treating other patients and teaching time. Please see Assessment and Plan section and the rest of the note for further information on patient assessment and treatment. Quality VTE Prophylaxis VTE prophylaxis: pharmacologic ordered (Lovenox 40 mg subQ daily.) Hospitalist [facility] Advance Care Plan I have confirmed that the patient's Advanced Care Plan is present, code status is documented, or surrogate decision maker is listed in patient medical record.: Yes Medication Reconciliation I have utilized all available resources to obtain, update and review the patients current medications (includes all prescriptions, OTC, herbals, cannabis, and nutritional supplements).: Yes
[2024-02-27] VITALS (14 sets, daily range): BP systolic 112–168; BP diastolic 78–114; PULSE 66–101; RESP 14–21; TEMP 36.4–37.1; O2SAT 95–100
--- NOTE | 2024-02-27 | ECHO_ITS ---
Patient Info Name: Candace Melo Age: 63 years : 1960 Gender: Female Ht: 66 in Wt: 132 lbs BSA: 1.67 m2 HR: 70 bpm Heart Rhythm: Sinus Rhythm Technical Quality: Good Exam Date: 02/27/2024 1:50 PM Exam Location: Echo Lab Patient Status: Inpatient Admit Date: 02/26/2024 Staff Ordering Physician: Abrahan Moore MD Storage Manager: Pennie Christianson RDCS Attending Provider: Karthik Bliss MD Exam Type: CA echo doppler color flow Study Info Indications - elevated trop Complete two-dimensional, color flow and Doppler transthoracic echocardiogram is performed. Summary 1. Complete two-dimensional, color flow and Doppler transthoracic echocardiogram is performed. 2. Left ventricular chamber dimension is normal. 3. Left ventricular systolic function is normal, estimated at 65-70%. 4. There is mildly increased left ventricular wall thickness. 5. The left ventricular diastolic function is grade I diastolic dysfunction. 6. The apical cap is akinetic. 7. The apical inferior wall, and apical anterior wall are hypokinetic. 8. Left atrial chamber dimension is mildly enlarged. 9. There is mild tricuspid valve regurgitation. 10. There is mild pulmonic regurgitation. Left Ventricle Left ventricular chamber dimension is normal. Left ventricular systolic function is normal, estimated at 65-70%. There is mildly increased left ventricular wall thickness. The left ventricular diastolic function is grade I diastolic dysfunction. The apical cap is akinetic. The apical inferior wall, and apical anterior wall are hypokinetic. All other naranjo appear normal. Right Ventricle Right ventricular chamber dimension is normal. Right ventricular systolic function is normal. Left Atria Left atrial chamber dimension is mildly enlarged. Right Atria Right atrial chamber dimension is normal. Atrial Septum Intact interatrial septum visualized by color flow imaging. Aortic Valve The aortic valve is trileaflet. There is mild aortic valve sclerosis. There is no aortic valve stenosis. There is trace aortic valve regurgitation. Pulmonic Valve The pulmonic valve is normal. There is no pulmonic valve stenosis. There is mild pulmonic regurgitation. Mitral Valve The mitral valve has normal leaflets. There is no mitral valve stenosis. There is trace mitral valve regurgitation. Tricuspid Valve The tricuspid valve leaflets are normal. There is no significant tricuspid valve stenosis. There is mild tricuspid valve regurgitation. No pulmonary hypertension, estimated pulmonary arterial systolic pressure is 32 mmHg. Pericardium/Pleural The pericardium appears normal. There is no pericardial effusion. Inferior Vena Cava Normal inferior vena cava with >50% collapse upon inspiration consistent with normal right atrial pressure, 10 mmHg. Aorta The aortic root size at the sinus of Valsalva is normal. Left Ventricular Outflow Tract Name Value Normal LVOT 2D LVOT Diameter 2.0 cm LVOT Doppler LVOT Peak Gradient 5 mmHg LVOT Mean Gradient 3 mmHg LVOT VTI 19 cm LVOT VTI/AV VTI Ratio 0.9 LVOT Stroke Volume 57 ml LVOT CO 5.5 l/min LVOT CI 3.3 l/min/m2 Pulmonic Valve Name Value Normal PV Doppler PV Peak Gradient 3 mmHg Mitral Valve Name Value Normal MV Doppler MV Decel Stephenson 529 cm/s2 MV PHT 32 ms MV Area (PHT) 6.9 cm2 4.0-5.0 MV Diastolic Function MV E Peak Velocity 58 cm/s MV A Peak Velocity 77 cm/s MV E/A 0.8 MV Decel Time 109 ms MV Annular TDI MV E/e' (Septal) 13.1 <=8.0 MV E/e' (Lateral) 18.5 <=8.0 MV E/e' (Average) 15.8 Tricuspid Valve Name Value Normal TV Regurgitation Doppler TR Peak Velocity 235 cm/s TR Peak Gradient 8 mmHg Estimated PAP/RSVP RA Pressure 10 mmHg <=5 PA Systolic Pressure 32 mmHg <36 RV Systolic Pressure 32 mmHg <36 Aortic Valve Name Value Normal AV Doppler AV Peak Velocity 126 cm/s AV Peak Gradient 6 mmHg AV Mean Gradient 3 mmHg AV VTI 21 cm AV Area (Cont Eq VTI) 2.7 cm2 >=3.0 AV Area (Cont Eq Delta) 2.7 cm2 AV Regurgitation 2D LVOT Area 3.1 cm2 Ventricles Name Value Normal LV Dimensions 2D/MM IVS Diastolic Thickness (2D) 1.0 cm 0.6-1.0 LVID Diastole (2D) 4.0 cm 3.8-5.2 LVIW Diastolic Thickness (2D) 1.0 cm 0.6-0.9 LVID Systole (2D) 2.7 cm 2.2-3.5 LVOT Diameter 2.0 cm LV Mass (2D Cubed) 130.94 g 67.00-162.00 LV Mass Index (2D Cubed) 78 g/m2 43-95 Relative Wall Thickness (2D) 0.52 LV Fractional Shortening/Ejection Fraction 2D/MM LV Fractional Shortening (2D) 33 % 27-45 LV EF (2D Teicholz) 62 % 54-74 LV Diastolic Volume (4C MOD) 88 ml LV EF (4C MOD) 62 % LV Diastolic Volume (2C MOD) 82 ml LV EF (2C MOD) 66 % LV Diastolic Volume (BP MOD) 87 ml 46-106 LV Diastolic Volume Index (BP MOD) 52 ml/m2 29-61 LV Systolic Volume (BP MOD) 32 ml 14-42 LV Systolic Volume Index (BP MOD) 19 ml/m2 8-24 LV EF (BP MOD) 63 % 54-74 LV Diastolic Length (4C) 7.9 cm LV Systolic Length (4C) 6.1 cm LV Stroke Volume (4C MOD) 54 ml Atria Name Value Normal LA Dimensions LA Volume (4C A-L) 37 ml LA Volume (BP A-L) 39 ml RA Dimensions RA Area (4C) 8.9 cm2 <=18.0 Wall Motion Scoring Wall Motion Scoring Index: 1.24 Report Signatures
[2024-02-27 00:37] LABS: Glucose Point of Care 146 mg/dl (65-105)
[2024-02-27] MEDS: chlordiazePOXIDE (*CRX) 25 MG CAPSULE PO ×5 (00:42→23:57)
[2024-02-27 05:03] LABS: MRSA (PCR) NOT DETECTED (NOT DETECTE)
[2024-02-27 05:44] LABS: Hematocrit 35.8 % (37.0-47.0); Hemoglobin 12.6 g/dL (12.0-15.0); Mean Corpuscular HGB Conc 35.2 g/dl (32-36); Mean Corpuscular Hemoglobin 32.8 pg (26-34); Mean Corpuscular Volume 93.2 fl (80-100); Mean Platelet Volume 9.4 fl (7.4-10.4); Platelet Count Result 224 k/mm3 (150-375); Red Blood Count 3.84 M/mm3 (4.2-5.4); Red Cell Distribution Width 12.7 % (11.5-14.5); White Blood Count 9.5 K/mm3 (4.5-10.0)
[2024-02-27] MEDS: SODIUM CHLORIDE 0.9% IV 1,000 ML 125 ML IV CONT (05:50)
[2024-02-27 06:04] LABS: Hemoglobin A1C 4.9 % (<5.7)
[2024-02-27 06:05] LABS: Alanine Aminotransferase 20 U/L (6-35); Alkaline Phosphatase 63 U/L (38-126); Anion Gap 7 mmol/L (4-12); Aspartate Amino Transferase 38 U/L (14-36); Bilirubin,Total 1.1 mg/dL (0.2-1.3); Blood Urea Nitrogen 11 mg/dL (7-17); Carbon Dioxide 26 mmol/L (22-30); Chloride 95 mmol/L (98-107); Creatine Kinase 71 U/L (30-135); Estimated CRCL calculation 91 ml/min; Estimated Glomerular Filt Rate > 60; Glucose 105 mg/dL (65-110); Potassium 3.4 mmol/L (3.4-5.0); Sodium 128 mmol/L (137-145)
[2024-02-27 06:07] LABS: Parathyroid Intact 28.8 pg/mL (14.5-75.2)
[2024-02-27] MEDS: DEXTROSE 5% 1,000 ML 1,000 ML 100 ML IV CONT (06:46)
[2024-02-27 07:11] LABS: Folic Acid 15.5 ng/mL (2.76->20)
[2024-02-27 07:15] LABS: Vitamin D 25 Hydroxy 25.4 ng/mL
[2024-02-27 07:22] LABS: Troponin I 0.304 ng/mL (0.000-0.034)
[2024-02-27] MEDS: THIAMINE HCL 100 MG TABLET PO (07:48)
[2024-02-27] MEDS: ENOXAPARIN 40 MG/0.4 ML SYRINGE SUB-Q (07:51)
--- NOTE | 2024-02-27 09:24 | ECG_ITS ---
Test Date: 2024-02-27 10:04:02 Measurements Intervals [place] Rate: 89 P: 31 MN: 170 QRS: 33 QRSD: 80 T: -38 QT: 429 QTc: 524 Interpretive Statements SINUS RHYTHM MARKED T-WAVE ABNORMALITY, CONSIDER ANTEROLATERAL ISCHEMIA MODERATE T-WAVE ABNORMALITY, CONSIDER INFERIOR ISCHEMIA BASELINE ARTIFACT- I, II, III, AVR, AVL, AVF, V1-V2 ABNORMAL ECG Compared to ECG 02/26/2024 16:30:15 HEART RATE HAS DECREASED Electronically Signed On 02-27-2024 10:10:34 ORACLE DRM CONSULTANT by Bull Machado D.O.
[2024-02-27 10:29] LABS: Sodium 126 mmol/L (137-145)
--- NOTE | 2024-02-27 10:39 | PC.NURSE ---
Abnormal EKG reviewed with Dr. Moore
--- NOTE | 2024-02-27 10:56 | P.PNIM_ITS ---
Progress Note: A&P Assessment and Plan (1) Alcohol related seizure: Code(s): R56.9 - Unspecified convulsions Status: Acute (2) Acute hyponatremia: Code(s): E87.1 - Hypo-osmolality and hyponatremia Status: Acute (3) Acute hypokalemia: Code(s): E87.6 - Hypokalemia Status: Acute (4) Abnormal ECG: Code(s): R94.31 - Abnormal electrocardiogram [ECG] [EKG] Status: Acute (5) QT prolongation: Code(s): R94.31 - Abnormal electrocardiogram [ECG] [EKG] Status: Acute Plan Seizure: Code(s): R56.9 - Unspecified convulsions Status: Acute Assessment and Plan: likely secondary to either hyponatremia or alcohol withdrawal. not on any anti epileptic drugs. In management of sodium as below continue seizure precautions she is currently on scheduled Librium and p.r.n. Ativan Neurologist is following, appreciate neurologist input Hyponatremia: Code(s): E87.1 - Hypo-osmolality and hyponatremia Status: Acute Assessment and Plan: patient presented with sodium of 118 treated with isotonic fluids sodium increased to quickly to 128. changed to dextrose. Repeat sodium was 126. Continue D5 for another 4 hours and recheck BMP and then manage accordingly. patient is a heavy beer drinker Nephrology has been consulted. Elevated troponin: Code(s): R79.89 - Other specified abnormal findings of blood chemistry Status: Acute Assessment and Plan: slightly elevated troponin with normal EKG with no chest pain. Possible Myocardial injury due alcohol intoxication Add aspirin check echocardiogram consult cardiology telemetry monitoring QT prolongation: Code(s): R94.31 - Abnormal electrocardiogram [ECG] [EKG] Status: Acute Assessment and Plan: could be secondary to electrolyte abnormalities. Avoid QT prolongation medication and has possible telemetry monitoring cardiology consultation Subjective Date/time seen: 02/27/24 10:56 Interval history: I saw exam patient today, patient is lethargic, has no complaints, denies headache, no seizure over the night. Patient knew she had a seizure before, not clear if that was induced by alcohol withdrawal. No seizure overnight Exam Narrative: GENERAL: Lethargic in no acute distress. Well-nourished. - EYES: EOMI. Anicteric. - HENT: Moist mucous membranes. - LUNGS: Clear to auscultation bilateral ly, no wheezing, rhonchi, or rales. - CARDIOVASCULAR: Regular rate and rhyth m. No murmur. No JVD. - ABDOMEN: Soft, non-tender and non-dist ended. No palpable masses. - EXTREMITIES: No edema. Peripheral puls es 2+. Non-tender. - NEUROLOGIC: No focal neurological defi cits. CN II-XII grossly intact. - PSYCHIATRIC: Awake, Alert and oriented to time. mood and affect, anxious. - SKIN: No rashes or lesions. Warm. - LYMPH: No cervical lymphadenopathy. Objective Data Vital Signs Vital Signs: Vital Signs - 24 hr 02/26/24 15:04 02/26/24 15:16 02/26/24 16:17 Temperature 97.7 F Pulse Rate 122 H 127 H Respiratory Rate 16 19 Blood Pressure 202/123 H 200/148 H Pulse Oximetry 100 99 97 Oxygen Delivery Room Air 02/26/24 16:40 02/26/24 17:28 02/26/24 17:35 Temperature Pulse Rate 119 H 101 H Respiratory Rate 16 20 Blood Pressure 176/109 H Pulse Oximetry 99 95 Oxygen Delivery Room Air 02/26/24 18:38 02/26/24 20:30 02/26/24 20:30 Temperature 97.8 F Pulse Rate 115 H 99 Respiratory Rate 15 20 Blood Pressure 135/97 H 163/119 H Pulse Oximetry 96 97 Oxygen Delivery Room Air 02/26/24 20:30 02/26/24 22:00 02/26/24 22:00 Temperature Pulse Rate 89 82 90 Respiratory Rate 20 Blood Pressure 101/77 Pulse Oximetry 98 Oxygen Delivery 02/26/24 23:17 02/27/24 00:00 02/27/24 00:00 Temperature 97.5 F L Pulse Rate 92 92 Respiratory Rate 20 Blood Pressure 112/78 Pulse Oximetry 95 Oxygen Delivery Room Air 02/27/24 02:00 02/27/24 04:00 02/27/24 04:00 Temperature 97.8 F Pulse Rate 97 87 Respiratory Rate 15 17 Blood Pressure 142/94 H 168/114 H Pulse Oximetry 100 99 Oxygen Delivery Room Air 02/27/24 04:00 02/27/24 05:36 02/27/24 07:59 Temperature Pulse Rate 99 96 Respiratory Rate 18 Blood Pressure 157/95 H Pulse Oximetry 95 Oxygen Delivery Room Air 02/27/24 08:00 02/27/24 08:00 02/27/24 10:00 Temperature 98.7 F Pulse Rate 93 89 96 Respiratory Rate 19 14 Blood Pressure 140/93 H 135/86 Pulse Oximetry 96 98 Oxygen Delivery 02/27/24 10:00 Temperature Pulse Rate 96 Respiratory Rate Blood Pressure Pulse Oximetry Oxygen Delivery Intake/Output Intake/Output: Intake & Output 02/24/24 02/25/24 02/26/24 02/27/24 23:59 23:59 23:59 23:59 Intake Total 1570 1480 Output Total 150 1500 Balance 1420 -20 Meds/Results Medications: Active Medications Generic Name Dose Route Start Last Admin Trade Name Freq PRN Reason Stop Dose Admin Acetaminophen 650 mg 02/26/24 18:43 Acetaminophen 325 Mg Tablet PO Q4H PRN Mild Pain (1-3) or Fever Chlordiazepoxide HCl 25 mg 02/27/24 00:00 02/27/24 05:51 Chlordiazepoxide (*Crx) 25 Mg Capsule PO 25 mg Q6HR WILFRIDO Administration Enoxaparin Sodium 40 mg 02/27/24 09:00 02/27/24 07:51 Enoxaparin 40 Mg/0.4 Ml Syringe SUB-Q 40 mg DAILY WILFRIDO Administration Folic Acid 1 mg 02/28/24 09:00 Folic Acid 1 Mg Tablet PO DAILY WILFRIDO Ceftriaxone Sodium 1 gm in 50 mls @ 100 mls/hr 02/27/24 18:00 Rocephin 1 Gm/Ns 50 Ml IVPB Q24H WILFRIDO Dextrose 1,000 mls @ 100 mls/hr 02/27/24 06:30 02/27/24 06:46 Dextrose 5% 1,000 Ml IV CONT 100 mls/hr .Q10H WILFRIDO Administration Lorazepam 2 mg 02/26/24 23:44 Lorazepam Inj (*Crx) 2 Mg/Ml Vial IV PUSH Q2H PRN CIWA > 15 Lorazepam 2 mg 02/26/24 23:44 Lorazepam Inj (*Crx) 2 Mg/Ml Vial IV PUSH Q4H PRN CIWA 8-15 Ondansetron HCl 4 mg 02/26/24 18:43 Ondansetron Inj 4 Mg/2 Ml Vial IV PUSH Q4H PRN Nausea Perflutren Lipid Microsphere 0 ml 11/13/24 09:23 Perflutren Lipid Microspheres 1.5 Ml Vial Diluted To 10 Ml Total Volume IV PUSH 03/01/24 09:23 ONCE PRN adequate visualization Protocol Thiamine HCl 100 mg 02/27/24 09:00 02/27/24 07:48 Thiamine Hcl 100 Mg Tablet PO 100 mg QAM WILFRIDO Administration Radiology Results: ITS Impressions Head CT 02/26/24 16:02 IMPRESSION: 1. Normal brain. Chest X-Ray 02/26/24 16:04 IMPRESSION: 1. No acute cardiopulmonary disease. Labs Labs: Laboratory Results - last 24 hr 02/26/24 02/26/24 02/26/24 16:18 16:42 18:42 WBC 11.8 H RBC 4.48 Hgb 14.6 D Hct 40.7 MCV 90.8 MCH 32.6 MCHC 35.9 RDW 12.5 Plt Count 283 MPV 10.2 Immature Gran % (Auto) 0.8 H Neut % (Auto) 82.5 H Lymph % (Auto) 6.7 L [place] % (Auto) 9.0 H Eos % (Auto) 0.7 Baso % (Auto) 0.3 Lymph # (Auto) 0.79 L [place] # (Auto) 1.1 H Eos # (Auto) 0.1 Baso # (Auto) 0.0 Abs Immat Gran (auto) 0.09 H Absolute Neuts (auto) 9.7 H Absolute Nucleated RBC 0.000 Nucleated RBC % 0.0 Sodium 118 L* 120 L Potassium 2.7 L* 3.1 L Chloride 78 L 79 L Carbon Dioxide 22 19 L Anion Gap 18 H 22 H BUN 15 D 15 Creatinine 0.80 0.70 Estim Creat Clear Calc 59 67 Estimated GFR > 60 > 60 Glucose 188 H 172 H POC Capillary Glucose Hemoglobin A1c Calcium 10.6 H 10.7 H Phosphorus Magnesium Total Bilirubin 1.3 AST 50 H ALT 24 Alkaline Phosphatase 91 Total Creatine Kinase Troponin I Total Protein 9.0 H Albumin 5.3 H Vitamin B12 Vitamin D 25-Hydroxy Folate TSH (Reflex) PTH Intact Urine Color Dark yellow Urine Appearance Clear Urine pH 5.5 Ur Specific [place] 1.022 Urine Protein 4+ H Urine Glucose (UA) Negative Urine Ketones 1+ H Ur Blood (Man) Non-hemolyzed trace H Urine Nitrate Negative Urine Bilirubin Negative Urine Urobilinogen 1.0 Add Ur Microanalysis Reviewed Leukocyte Esterase Rfl Trace H Urine RBC 3-5 H Urine WBC 21-50 H Ur Squamous Epith Cells None seen Urine Bacteria None seen Urine Casts 6-10 Hyaline Casts Present Nasal MRSA (PCR) Urine Opiates Screen Negative Urine Methadone Screen Negative Ur Barbiturates Screen Negative Ur Phencyclidine Scrn Negative Ur Amphetamine Screen Negative U Benzodiazepines Scrn Negative Urine Cocaine Screen Negative U Cannabinoids Screen Positive A Ethyl Alcohol < 10 02/26/24 02/26/24 02/26/24 21:44 21:44 21:44 WBC RBC Hgb Hct MCV MCH MCHC RDW Plt Count MPV Immature Gran % (Auto) Neut % (Auto) Lymph % (Auto) [place] % (Auto) Eos % (Auto) Baso % (Auto) Lymph # (Auto) [place] # (Auto) Eos # (Auto) Baso # (Auto) Abs Immat Gran (auto) Absolute Neuts (auto) Absolute Nucleated RBC Nucleated RBC % Sodium Potassium Chloride Carbon Dioxide Anion Gap BUN Creatinine Estim Creat Clear Calc Estimated GFR Glucose POC Capillary Glucose Hemoglobin A1c Calcium Phosphorus 3.0 Cancelled Magnesium 2.1 Cancelled Total Bilirubin AST ALT Alkaline Phosphatase Total Creatine Kinase Troponin I 0.440 H* Total Protein Albumin Vitamin B12 Vitamin D 25-Hydroxy Folate TSH (Reflex) PTH Intact Urine Color Urine Appearance Urine pH Ur Specific [place] Urine Protein Urine Glucose (UA) Urine Ketones Ur Blood (Man) Urine Nitrate Urine Bilirubin Urine Urobilinogen Add Ur Microanalysis Leukocyte Esterase Rfl Urine RBC Urine WBC Ur Squamous Epith Cells Urine Bacteria Urine Casts Hyaline Casts Nasal MRSA (PCR) Urine Opiates Screen Urine Methadone Screen Ur Barbiturates Screen Ur Phencyclidine Scrn Ur Amphetamine Screen U Benzodiazepines Scrn Urine Cocaine Screen U Cannabinoids Screen Ethyl Alcohol 02/27/24 02/27/24 02/27/24 00:33 03:49 05:34 WBC 9.5 RBC 3.84 L Hgb 12.6 Hct 35.8 L MCV 93.2 MCH 32.8 MCHC 35.2 RDW 12.7 Plt Count 224 MPV 9.4 Immature Gran % (Auto) Neut % (Auto) Lymph % (Auto) [place] % (Auto) Eos % (Auto) Baso % (Auto) Lymph # (Auto) [place] # (Auto) Eos # (Auto) Baso # (Auto) Abs Immat Gran (auto) Absolute Neuts (auto) Absolute Nucleated RBC Nucleated RBC % Sodium 128 L Potassium 3.4 Chloride 95 L Carbon Dioxide 26 Anion Gap 7 BUN 11 Creatinine 0.50 L Estim Creat Clear Calc 91 Estimated GFR > 60 Glucose 105 POC Capillary Glucose 146 H Hemoglobin A1c 4.9 Calcium 9.0 Phosphorus Magnesium Total Bilirubin 1.1 AST 38 H ALT 20 Alkaline Phosphatase 63 Total Creatine Kinase 71 Troponin I Total Protein 7.0 Albumin 4.0 Vitamin B12 453.0 Vitamin D 25-Hydroxy 25.4 Folate 15.5 TSH (Reflex) 1.480 PTH Intact 28.8 Urine Color Urine Appearance Urine pH Ur Specific [place] Urine Protein Urine Glucose (UA) Urine Ketones Ur Blood (Man) Urine Nitrate Urine Bilirubin Urine Urobilinogen Add Ur Microanalysis Leukocyte Esterase Rfl Urine RBC Urine WBC Ur Squamous Epith Cells Urine Bacteria Urine Casts Hyaline Casts Nasal MRSA (PCR) Not detected Urine Opiates Screen Urine Methadone Screen Ur Barbiturates Screen Ur Phencyclidine Scrn Ur Amphetamine Screen U Benzodiazepines Scrn Urine Cocaine Screen U Cannabinoids Screen Ethyl Alcohol 02/27/24 02/27/24 05:37 10:14 WBC RBC Hgb Hct MCV MCH MCHC RDW Plt Count MPV Immature Gran % (Auto) Neut % (Auto) Lymph % (Auto) [place] % (Auto) Eos % (Auto) Baso % (Auto) Lymph # (Auto) [place] # (Auto) Eos # (Auto) Baso # (Auto) Abs Immat Gran (auto) Absolute Neuts (auto) Absolute Nucleated RBC Nucleated RBC % Sodium 126 L Potassium Chloride Carbon Dioxide Anion Gap BUN Creatinine Estim Creat Clear Calc Estimated GFR Glucose POC Capillary Glucose Hemoglobin A1c Calcium Phosphorus Magnesium Total Bilirubin AST ALT Alkaline Phosphatase Total Creatine Kinase Troponin I 0.304 H* D Total Protein Albumin Vitamin B12 Vitamin D 25-Hydroxy Folate TSH (Reflex) PTH Intact Urine Color Urine Appearance Urine pH Ur Specific [place] Urine Protein Urine Glucose (UA) Urine Ketones Ur Blood (Man) Urine Nitrate Urine Bilirubin Urine Urobilinogen Add Ur Microanalysis Leukocyte Esterase Rfl Urine RBC Urine WBC Ur Squamous Epith Cells Urine Bacteria Urine Casts Hyaline Casts Nasal MRSA (PCR) Urine Opiates Screen Urine Methadone Screen Ur Barbiturates Screen Ur Phencyclidine Scrn Ur Amphetamine Screen U Benzodiazepines Scrn Urine Cocaine Screen U Cannabinoids Screen Ethyl Alcohol
--- NOTE | 2024-02-27 11:27 | P.CONNEU_ITS ---
Assessment and Plan Assessment and plan (1) Alcohol related seizure: Code(s): R56.9 - Unspecified convulsions Status: Acute (2) Acute hyponatremia: Code(s): E87.1 - Hypo-osmolality and hyponatremia Status: Acute (3) Acute hypokalemia: Code(s): E87.6 - Hypokalemia Status: Acute Plan 1. Alcohol withdrawal seizure 2. Possibility of underlying seizure disorder could be kept in mind 3. Acute electrolyte imbalance with hyponatremia and hypokalemia. Once the intracranial bleed was ruled out and considering the previous history patient was admitted to the hospital for the ongoing care of alcoholism ,related seizures, Ativan initially IV push q.2 hours p.r.n. along with the antibiotics. Subsequently an EEG will be obtained Consult date: 02/27/24 HPI: Candace Melo is a 63 year old female Admitted to the hospital subsequent to having had a seizure at home witnessed by her son and the whole episode lasted for 2minutes but patient does have ongoing history of seizure disorder though it was not clear what medication she has been taking. It was also reported that she drinks alcohol heavy the history of alcohol abuse and was not sure whether at this time she had the alcohol withdrawal or not at the time of initial evaluation in the emergency room she was oriented x4 but subsequently had a 2nd seizure in the ER this lasted for a minute and half at that time she received Ativan intravenously though she was noted to have tongue bite, but subsequently having nausea and vomiting which was also going on throughout the day. She is not known to be allergic to any medications. She does have ongoing history of alcohol abuse, seizure disorder, and history of carcinoma of the lung she has history of years smoked 30 with 15 smoking pack years and currently everyday smoker and alcohol intake 40 drinks per week. Initial exam in the emergency room was grossly nonfocal. Subsequent to the 2nd seizure he was awake alert her potassium was low she receives IV K rider L of fluid her initial blood pressure was 202/123 with pulse rate of 122 and pulse ox of 100% she was noted to abnormal EKG her initial he was normal, BMP revealed sodium 120 potassium 3.1 chloride 79 BUN was 15 with creatinine of 0.70, drug screen was positive for cannabinoids and alcohol level was less than 10 CT of the head was negative for the intracranial bleed chest x-ray was negative for the acute aspiration EKG was in sinus rhythm with no specific ST changes, x-ray chest was normal except calcified right hilar lymph nodes and mild thoracic spondylosis Review of Systems Review of Systems: All systems reviewed & are unremarkable except as noted in HPI and below PMFSH Past Medical History Medical History Alcohol abuse Lung cancer Seizures Surgical History Surgical History History of pneumonectomy Family History Family History Father Cancer Mother Hypertension Social History Social History Social History: Patient reports that she lives with her son Salvatore. She has 3 children. She has history of chronic alcohol abuse. She is vague in her report of the amount of alcohol that she drinks. She denied illicit substance use but urine drug screen positive for marijuana. She is a current smoker. She cannot tell me how much she smokes daily. Code status: Full code Surrogate decision maker: Salvatore (son) Smoking packs per day: 0.5 Smoking cigarettes per day: 10.0 Years smoked: 30 Smoking pack-years: 15.00 Smoking status: Current every day smoker Alcohol intake: current Drinks per week: 40 Substance use: former Substance use type: marijuana Do You Feel Safe in your Home?: Yes Lack of Transportation: YES Lack of Food: Sometimes True Current Housing: I Have Housing Concerned About Future Housing: No Difficulty Paying Gas/Electric Bills: No Difficulty Paying for Meds: No Currently Unemployed: No Education: High School Diploma/GED Difficulty w/ Childcare or Family Care: No Spiritual care concerns: No Meds Home Medications and Allergies Home Medications Medication Instructions Recorded Confirmed Type No Home Medications 02/26/24 02/26/24 History Allergies Allergy/AdvReac Type Severity Reaction Status Date / Time No Known Allergies Allergy Verified 02/26/24 20:38 Vital Signs Vital Signs - 24 hr 02/26/24 15:04 02/26/24 15:16 02/26/24 16:17 Temperature 36.5 C Pulse Rate 122 H 127 H Respiratory Rate 16 19 Blood Pressure 202/123 H 200/148 H Pulse Oximetry 100 99 97 Oxygen Delivery Room Air 02/26/24 16:40 02/26/24 17:28 02/26/24 17:35 Temperature Pulse Rate 119 H 101 H Respiratory Rate 16 20 Blood Pressure 176/109 H Pulse Oximetry 99 95 Oxygen Delivery Room Air 02/26/24 18:38 02/26/24 20:30 02/26/24 20:30 Temperature 36.6 C Pulse Rate 115 H 99 Respiratory Rate 15 20 Blood Pressure 135/97 H 163/119 H Pulse Oximetry 96 97 Oxygen Delivery Room Air 02/26/24 20:30 02/26/24 22:00 02/26/24 22:00 Temperature Pulse Rate 89 82 90 Respiratory Rate 20 Blood Pressure 101/77 Pulse Oximetry 98 Oxygen Delivery 02/26/24 23:17 02/27/24 00:00 02/27/24 00:00 Temperature 36.4 C L Pulse Rate 92 92 Respiratory Rate 20 Blood Pressure 112/78 Pulse Oximetry 95 Oxygen Delivery Room Air 02/27/24 02:00 02/27/24 04:00 02/27/24 04:00 Temperature 36.6 C Pulse Rate 97 87 Respiratory Rate 15 17 Blood Pressure 142/94 H 168/114 H Pulse Oximetry 100 99 Oxygen Delivery Room Air 02/27/24 04:00 02/27/24 05:36 02/27/24 07:59 Temperature Pulse Rate 99 96 Respiratory Rate 18 Blood Pressure 157/95 H Pulse Oximetry 95 Oxygen Delivery Room Air 02/27/24 08:00 02/27/24 08:00 02/27/24 10:00 Temperature 37.1 C Pulse Rate 93 89 96 Respiratory Rate 19 14 Blood Pressure 140/93 H 135/86 Pulse Oximetry 96 98 Oxygen Delivery 02/27/24 10:00 Temperature Pulse Rate 96 Respiratory Rate Blood Pressure Pulse Oximetry Oxygen Delivery Exam Narrative: today awake alert in no obvious acute distress, head normocephalic with no cranial bruits, ear nose throat examination normal, neck supple with no cervical bruit ,no thyromegaly ,no lymphadenopathy, heart regular with no murmur, lungs clear to auscultation with no rhonchi or crepitations, abdomen is soft nontender with normal bowel sounds, no organomegaly, her skin clear, neurologically she is awake alert oriented in being in the hospital, her speech is not dysphasic ,not dysarthric ,not dysphonic, pupils round regular, knowles of the vision full ,extraocular movements full with no nystagmus ,facial sensation intact ,face symmetrical ,tongue midline ,uvula midline, motor examination revealed her to have ability to move both upper and lower extremities and deep tendon reflexes are 1 to2+, plantar responses are downgoing ,there is no evidence of gross cerebellar deficit at this time. Results Labs 02/27/24 05:34 02/27/24 10:14 Labs: Short CBC 02/26/24 02/27/24 Range/Units 16:18 05:34 WBC 11.8 H 9.5 (4.5-10.0) K/mm3 Hgb 14.6 D 12.6 (12.0-15.0) g/dL Hct 40.7 35.8 L (37.0-47.0) % Plt Count 283 224 (150-375) k/mm3 BMP 02/26/24 02/26/24 02/27/24 16:18 18:42 05:34 Sodium 118 L* 120 L 128 L Potassium 2.7 L* 3.1 L 3.4 Chloride 78 L 79 L 95 L Carbon Dioxide 22 19 L 26 BUN 15 D 15 11 Creatinine 0.80 0.70 0.50 L Glucose 188 H 172 H 105 Calcium 10.6 H 10.7 H 9.0 02/27/24 10:14 Sodium 126 L Potassium Chloride Carbon Dioxide BUN Creatinine Glucose Calcium Cardiac Enzymes 02/26/24 02/27/24 02/27/24 Range/Units 21:44 05:34 05:37 Total Creatine Kinase 71 (30-135) U/L Troponin I 0.440 H* 0.304 H* D (0.000-0.034) ng/mL Liver Function 02/26/24 02/27/24 Range/Units 16:18 05:34 Total Bilirubin 1.3 1.1 (0.2-1.3) mg/dL AST 50 H 38 H (14-36) U/L ALT 24 20 (6-35) U/L Alkaline Phosphatase 91 63 (38-126) U/L Albumin 5.3 H 4.0 (3.5-5.1) g/dL Urine 02/26/24 Range/Units 16:42 Urine Color Dark yellow (Yellow) Urine Appearance Clear (Clear) Urine pH 5.5 (5.0-9.0) Ur Specific [place] 1.022 (1.001-1.035) Urine Protein 4+ H (Negative) mg/dL Urine Glucose (UA) Negative (Negative) mg/dL
--- NOTE | 2024-02-27 11:36 | P.CONIN_ITS ---
Assessment and Plan Assessment and plan (1) Hyponatremia: Code(s): E87.1 - Hypo-osmolality and hyponatremia Status: Acute Assessment and Plan: patient presented with sodium of 118 and was treated with isotonic fluids sodium increased to quickly to 128. Fluid was changed to dextrose. Repeat sodium was 126. Continue D5 for another 4 hours and recheck BMP and then manage accordingly. Nephrology has been consulted. Likely etiologies beer potomania as patient is a heavy beer drinker (2) Seizure: Code(s): R56.9 - Unspecified convulsions Status: Acute Assessment and Plan: patient presented with seizures which is likely secondary to either hyponatre jaime or alcohol withdrawal. Patient has history of alcohol withdrawal seizure in the past and is not on any anti epileptic drugs. In management of sodium as below continue seizure precautions she is currently on scheduled Librium and p.r.n. Ativan (3) Elevated troponin: Code(s): R79.89 - Other specified abnormal findings of blood chemistry Status: Acute Assessment and Plan: slightly elevated troponin with normal EKG with no chest pain. This could be secondary to seizures or electrolyte abnormalities Add aspirin check echocardiogram consult cardiology telemetry monitoring (4) QT prolongation: Code(s): R94.31 - Abnormal electrocardiogram [ECG] [EKG] Status: Acute Assessment and Plan: could be secondary to electrolyte abnormalities. Avoid QT prolongation medication and has possible telemetry monitoring cardiology consultation Plan DVT prophylaxis - Lovenox Nutrition - diet order Code Status - Full Code incentive spirometry Total Critical Care Time - 32 minutes Due to a high probability of clinically significant, life threatening deterioration, the patient required my highest level of preparedness to interv ana maría emergently and I personally spent this critical care time directly and personally managing the patient. This critical care time included obtaining a history; examining the patient; pulse oximetry; ordering and review of studies; arranging urgent treatment with development of a management plan; evaluation of patient's response to treatment; frequent reassessment; and discussions with other providers. It was exclusive of separately billable procedures and treating other patients and teaching time. Please see Assessment and Plan section and the rest of the note for further information on patient assessment and treatment Medical Records Director Consult Note Consult date: 02/27/24 Reason for consult: hyponatremia, seizure, alcohol abuse HPI: Candace Melo is a 63 year old female with past medical history of lung cancer status post pneumonectomy partial,heavy alcohol use , alcohol withdrawal seizures and smoking was brought to ER after a witnessed tonic clonic seizures. Seizure was witnessed by her son. Patient was partially oriented when she arrived to the ER. She had another episode of seizure in the ER and was given Ativan. Since then she was admitted to ICU and has not had any recurrence. She was started on Librium. And seizure precautions. This morning she told me that she has had seizures in the past and has been on antiepileptic drugs but they were discontinued considering that alcohol was thought to be the reason for seizures. She admits to be drinking 6 pack of beer daily. She also smokes 14- 15 cigarettes a day. Prior to this episode she denies any other symptoms. Patient denies fever, chest pain, shortness of breath, cough, nausea vomiting, abdominal pain,, diarrhea, headache or constipation. All other systems were reviewed and were negative. patient was admitted and was started on IV fluids as she was seemed to be dehydrated. Her sodium increased quickly and she was switched to D5 water early this morning. Potassium was also replaced. This morning she states she feels good and denies any complaints she is alert oriented x3 and does not have any symptoms. Review of Systems Review of Systems: All systems reviewed & are unremarkable except as noted in HPI and below ( HPI) PMFSH Past Medical History Medical History Alcohol abuse Lung cancer Seizures Surgical History Surgical History History of pneumonectomy Family History Family History Father Cancer Mother Hypertension Social History Social History Social History: Patient reports that she lives with her son Salvatore. She has 3 children. She has history of chronic alcohol abuse. She is vague in her report of the amount of alcohol that she drinks. She denied illicit substance use but urine drug screen positive for marijuana. She is a current smoker. She cannot tell me how much she smokes daily. Code status: Full code Surrogate decision maker: Salvatore (son) Smoking packs per day: 0.5 Smoking cigarettes per day: 10.0 Years smoked: 30 Smoking pack-years: 15.00 Smoking status: Current every day smoker Alcohol intake: current Drinks per week: 40 Substance use: former Substance use type: marijuana Do You Feel Safe in your Home?: Yes Lack of Transportation: YES Lack of Food: Sometimes True Current Housing: I Have Housing Concerned About Future Housing: No Difficulty Paying Gas/Electric Bills: No Difficulty Paying for Meds: No Currently Unemployed: No Education: High School Diploma/GED Difficulty w/ Childcare or Family Care: No Spiritual care concerns: No Meds Home Medications and Allergies Home Medications Medication Instructions Recorded Confirmed Type No Home Medications 02/26/24 02/26/24 History Allergies Allergy/AdvReac Type Severity Reaction Status Date / Time No Known Allergies Allergy Verified 02/26/24 20:38 Vital Signs Vital Signs - 24 hr 02/26/24 15:04 02/26/24 15:16 02/26/24 16:17 Temperature 36.5 C Pulse Rate 122 H 127 H Respiratory Rate 16 19 Blood Pressure 202/123 H 200/148 H Pulse Oximetry 100 99 97 Oxygen Delivery Room Air 02/26/24 16:40 02/26/24 17:28 02/26/24 17:35 Temperature Pulse Rate 119 H 101 H Respiratory Rate 16 20 Blood Pressure 176/109 H Pulse Oximetry 99 95 Oxygen Delivery Room Air 02/26/24 18:38 02/26/24 20:30 02/26/24 20:30 Temperature 36.6 C Pulse Rate 115 H 99 Respiratory Rate 15 20 Blood Pressure 135/97 H 163/119 H Pulse Oximetry 96 97 Oxygen Delivery Room Air 02/26/24 20:30 02/26/24 22:00 02/26/24 22:00 Temperature Pulse Rate 89 82 90 Respiratory Rate 20 Blood Pressure 101/77 Pulse Oximetry 98 Oxygen Delivery 02/26/24 23:17 02/27/24 00:00 02/27/24 00:00 Temperature 36.4 C L Pulse Rate 92 92 Respiratory Rate 20 Blood Pressure 112/78 Pulse Oximetry 95 Oxygen Delivery Room Air 02/27/24 02:00 02/27/24 04:00 02/27/24 04:00 Temperature 36.6 C Pulse Rate 97 87 Respiratory Rate 15 17 Blood Pressure 142/94 H 168/114 H Pulse Oximetry 100 99 Oxygen Delivery Room Air 02/27/24 04:00 02/27/24 05:36 02/27/24 07:59 Temperature Pulse Rate 99 96 Respiratory Rate 18 Blood Pressure 157/95 H Pulse Oximetry 95 Oxygen Delivery Room Air 02/27/24 08:00 02/27/24 08:00 02/27/24 10:00 Temperature 37.1 C Pulse Rate 93 89 96 Respiratory Rate 19 14 Blood Pressure 140/93 H 135/86 Pulse Oximetry 96 98 Oxygen Delivery 02/27/24 10:00 Temperature Pulse Rate 96 Respiratory Rate Blood Pressure Pulse Oximetry Oxygen Delivery Exam Narrative: General: Pt is alert awake and in NAD Lungs/Chest: Trachea central Clear BS B/L, No crackles or wheezing. Cardiac: RRR. Normal S1 S2. No murmurs Circulation: Pedal pulses are intact and symmetrical. Abdomen: Normal bowel sounds.. Soft. NT. ND. Extremities: No clubbing, cyanosis or edema. Warm : Nelson in place Neurologic: Follows commands. Moves all 4 extremities PERRL Skin: No Rash Results Labs 02/27/24 05:34 02/27/24 10:14 Labs: Impressions Head CT 02/26/24 16:02 IMPRESSION: 1. Normal brain. Chest X-Ray 02/26/24 16:04 IMPRESSION: 1. No acute cardiopulmonary disease. Short CBC 02/26/24 02/27/24 Range/Units 16:18 05:34 WBC 11.8 H 9.5 (4.5-10.0) K/mm3 Hgb 14.6 D 12.6 (12.0-15.0) g/dL Hct 40.7 35.8 L (37.0-47.0) % Plt Count 283 224 (150-375) k/mm3 [facility] 02/26/24 02/26/24 02/27/24 16:18 18:42 05:34 Sodium 118 L* 120 L 128 L Potassium 2.7 L* 3.1 L 3.4 Chloride 78 L 79 L 95 L Carbon Dioxide 22 19 L 26 BUN 15 D 15 11 Creatinine 0.80 0.70 0.50 L Glucose 188 H 172 H 105 Calcium 10.6 H 10.7 H 9.0 02/27/24 10:14 Sodium 126 L Potassium Chloride Carbon Dioxide BUN Creatinine Glucose Calcium Cardiac Enzymes 02/26/24 02/27/24 02/27/24 Range/Units 21:44 05:34 05:37 Total Creatine Kinase 71 (30-135) U/L Troponin I 0.440 H* 0.304 H* D (0.000-0.034) ng/mL Liver Function 02/26/24 02/27/24 Range/Units 16:18 05:34 Total Bilirubin 1.3 1.1 (0.2-1.3) mg/dL AST 50 H 38 H (14-36) U/L ALT 24 20 (6-35) U/L Alkaline Phosphatase 91 63 (38-126) U/L Albumin 5.3 H 4.0 (3.5-5.1) g/dL Urine 02/26/24 Range/Units 16:42 Urine Color Dark yellow (Yellow) Urine Appearance Clear (Clear) Urine pH 5.5 (5.0-9.0) Ur Specific [place] 1.022 (1.001-1.035) Urine Protein 4+ H (Negative) mg/dL Urine Glucose (UA) Negative (Negative) mg/dL ECG Interpretation: sinus rhythm with T-wave inversion an anterior lateral leads. Prolonged QTC
--- NOTE | 2024-02-27 11:39 | P.CONNEU_ITS ---
Consult date: 02/27/24 HPI: Candace Melo is a 63 year old female [facility] [place] Past Medical History Medical History (Updated 02/27/24 @ 11:38 by Reid Jones MD) Alcohol abuse Lung cancer Seizures Surgical History Surgical History (Updated 02/26/24 @ 23:52 by Meg Ortega DO) History of pneumonectomy Family History Family History Father Cancer Mother Hypertension Social History Social History (Updated 02/27/24 @ 08:06 by Meg Ortega DO) Social History: Patient reports that she lives with her son Salvatore. She has 3 children. She has history of chronic alcohol abuse. She is vague in her report of the amount of alcohol that she drinks. She denied illicit substance use but urine drug screen positive for marijuana. She is a current smoker. She cannot tell me how much she smokes daily. Code status: Full code Surrogate decision maker: Salvatore (son) Smoking packs per day: 0.5 Smoking cigarettes per day: 10.0 Years smoked: 30 Smoking pack-years: 15.00 Smoking status: Current every day smoker Alcohol intake: current Drinks per week: 40 Substance use: former Substance use type: marijuana Do You Feel Safe in your Home?: Yes Lack of Transportation: YES Lack of Food: Sometimes True Current Housing: I Have Housing Concerned About Future Housing: No Difficulty Paying Gas/Electric Bills: No Difficulty Paying for Meds: No Currently Unemployed: No Education: High School Diploma/GED Difficulty w/ Childcare or Family Care: No Spiritual care concerns: No Meds Home Medications and Allergies Home Medications Medication Instructions Recorded Confirmed Type No Home Medications 02/26/24 02/26/24 History Allergies Allergy/AdvReac Type Severity Reaction Status Date / Time No Known Allergies Allergy Verified 02/26/24 20:38 Vital Signs Vital Signs - 24 hr 02/26/24 15:04 02/26/24 15:16 02/26/24 16:17 Temperature 36.5 C Pulse Rate 122 H 127 H Respiratory Rate 16 19 Blood Pressure 202/123 H 200/148 H Pulse Oximetry 100 99 97 Oxygen Delivery Room Air 02/26/24 16:40 02/26/24 17:28 02/26/24 17:35 Temperature Pulse Rate 119 H 101 H Respiratory Rate 16 20 Blood Pressure 176/109 H Pulse Oximetry 99 95 Oxygen Delivery Room Air 02/26/24 18:38 02/26/24 20:30 02/26/24 20:30 Temperature 36.6 C Pulse Rate 115 H 99 Respiratory Rate 15 20 Blood Pressure 135/97 H 163/119 H Pulse Oximetry 96 97 Oxygen Delivery Room Air 02/26/24 20:30 02/26/24 22:00 02/26/24 22:00 Temperature Pulse Rate 89 82 90 Respiratory Rate 20 Blood Pressure 101/77 Pulse Oximetry 98 Oxygen Delivery 02/26/24 23:17 02/27/24 00:00 02/27/24 00:00 Temperature 36.4 C L Pulse Rate 92 92 Respiratory Rate 20 Blood Pressure 112/78 Pulse Oximetry 95 Oxygen Delivery Room Air 02/27/24 02:00 02/27/24 04:00 02/27/24 04:00 Temperature 36.6 C Pulse Rate 97 87 Respiratory Rate 15 17 Blood Pressure 142/94 H 168/114 H Pulse Oximetry 100 99 Oxygen Delivery Room Air 02/27/24 04:00 02/27/24 05:36 02/27/24 07:59 Temperature Pulse Rate 99 96 Respiratory Rate 18 Blood Pressure 157/95 H Pulse Oximetry 95 Oxygen Delivery Room Air 02/27/24 08:00 02/27/24 08:00 02/27/24 10:00 Temperature 37.1 C Pulse Rate 93 89 96 Respiratory Rate 19 14 Blood Pressure 140/93 H 135/86 Pulse Oximetry 96 98 Oxygen Delivery 02/27/24 10:00 Temperature Pulse Rate 96 Respiratory Rate Blood Pressure Pulse Oximetry Oxygen Delivery Results Labs 02/27/24 05:34 02/27/24 10:14 Labs: Short CBC 02/26/24 02/27/24 Range/Units 16:18 05:34 WBC 11.8 H 9.5 (4.5-10.0) K/mm3 Hgb 14.6 D 12.6 (12.0-15.0) g/dL Hct 40.7 35.8 L (37.0-47.0) % Plt Count 283 224 (150-375) k/mm3 BMP 02/26/24 02/26/24 02/27/24 16:18 18:42 05:34 Sodium 118 L* 120 L 128 L Potassium 2.7 L* 3.1 L 3.4 Chloride 78 L 79 L 95 L Carbon Dioxide 22 19 L 26 BUN 15 D 15 11 Creatinine 0.80 0.70 0.50 L Glucose 188 H 172 H 105 Calcium 10.6 H 10.7 H 9.0 02/27/24 10:14 Sodium 126 L Potassium Chloride Carbon Dioxide BUN Creatinine Glucose Calcium Cardiac Enzymes 02/26/24 02/27/24 02/27/24 Range/Units 21:44 05:34 05:37 Total Creatine Kinase 71 (30-135) U/L Troponin I 0.440 H* 0.304 H* D (0.000-0.034) ng/mL Liver Function 02/26/24 02/27/24 Range/Units 16:18 05:34 Total Bilirubin 1.3 1.1 (0.2-1.3) mg/dL AST 50 H 38 H (14-36) U/L ALT 24 20 (6-35) U/L Alkaline Phosphatase 91 63 (38-126) U/L Albumin 5.3 H 4.0 (3.5-5.1) g/dL Urine 02/26/24 Range/Units 16:42 Urine Color Dark yellow (Yellow) Urine Appearance Clear (Clear) Urine pH 5.5 (5.0-9.0) Ur Specific [place] 1.022 (1.001-1.035) Urine Protein 4+ H (Negative) mg/dL Urine Glucose (UA) Negative (Negative) mg/dL
[2024-02-27] MEDS: ASPIRIN 325 MG ENTERIC TABLET PO (12:16)
[2024-02-27] MEDS: POTASSIUM CHLORIDE 20 MEQ ER TABLET 40 MEQ PO ×2 (12:16→14:30)
--- NOTE | 2024-02-27 12:40 | P.CONNP_ITS ---
History of Present Illness Reason for Consult Consult date: 02/27/24 Reason for consult: hyponatremia Chief Complaint Chief complaint: etoh withdrawal, seizure, hypoatremia, hypokalemia Review of Systems Review of Systems: As per HPI. [facility] Past Medical History Medical History Alcohol abuse Lung cancer Seizures Surgical History Surgical History History of pneumonectomy Family History Family History Father Cancer Mother Hypertension Alcoholism Social History Social History Social History: Patient reports that she lives with her son Salvatore. She has 3 children. She has history of chronic alcohol abuse. She is vague in her report of the amount of alcohol that she drinks. She denied illicit substance use but urine drug screen positive for marijuana. She is a current smoker. She cannot tell me how much she smokes daily. Code status: Full code Surrogate decision maker: Salvatore (son) Smoking packs per day: 0.5 Smoking cigarettes per day: 10.0 Years smoked: 30 Smoking pack-years: 15.00 Smoking status: Current every day smoker Alcohol intake: current Drinks per week: 40 Substance use: former Substance use type: marijuana Do You Feel Safe in your Home?: Yes Lack of Transportation: YES Lack of Food: Sometimes True Current Housing: I Have Housing Concerned About Future Housing: No Difficulty Paying Gas/Electric Bills: No Difficulty Paying for Meds: No Currently Unemployed: No Education: High School Diploma/GED Difficulty w/ Childcare or Family Care: No Spiritual care concerns: No Meds Home Medications and Allergies Home Medications Medication Instructions Recorded Confirmed Type No Home Medications 02/26/24 02/26/24 History Allergies Allergy/AdvReac Type Severity Reaction Status Date / Time No Known Allergies Allergy Verified 02/26/24 20:38 Vital Signs Vital Signs 02/26/24 15:04 02/26/24 15:16 02/26/24 16:17 Temperature 97.7 F Pulse Rate 122 H 127 H Respiratory Rate 16 19 Blood Pressure 202/123 H 200/148 H Pulse Oximetry 100 99 97 Oxygen Delivery Room Air Fraction of Inspired Oxygen 02/26/24 16:40 02/26/24 17:28 02/26/24 17:35 Temperature Pulse Rate 119 H 101 H Respiratory Rate 16 20 Blood Pressure 176/109 H Pulse Oximetry 99 95 Oxygen Delivery Room Air Fraction of Inspired Oxygen 02/26/24 18:38 02/26/24 20:30 02/26/24 20:30 Temperature 97.8 F Pulse Rate 115 H 99 Respiratory Rate 15 20 Blood Pressure 135/97 H 163/119 H Pulse Oximetry 96 97 Oxygen Delivery Room Air Fraction of Inspired Oxygen 02/26/24 20:30 02/26/24 22:00 02/26/24 22:00 Temperature Pulse Rate 89 82 90 Respiratory Rate 20 Blood Pressure 101/77 Pulse Oximetry 98 Oxygen Delivery Fraction of Inspired Oxygen 02/26/24 23:17 02/27/24 00:00 02/27/24 00:00 Temperature 97.5 F L Pulse Rate 92 92 Respiratory Rate 20 Blood Pressure 112/78 Pulse Oximetry 95 Oxygen Delivery Room Air Fraction of Inspired Oxygen 02/27/24 02:00 02/27/24 04:00 02/27/24 04:00 Temperature 97.8 F Pulse Rate 97 87 Respiratory Rate 15 17 Blood Pressure 142/94 H 168/114 H Pulse Oximetry 100 99 Oxygen Delivery Room Air Fraction of Inspired Oxygen 02/27/24 04:00 02/27/24 05:36 02/27/24 07:59 Temperature Pulse Rate 99 96 Respiratory Rate 18 Blood Pressure 157/95 H Pulse Oximetry 95 Oxygen Delivery Room Air Fraction of Inspired Oxygen 02/27/24 08:00 02/27/24 08:00 02/27/24 10:00 Temperature 98.7 F Pulse Rate 93 89 96 Respiratory Rate 19 14 Blood Pressure 140/93 H 135/86 Pulse Oximetry 96 98 Oxygen Delivery Fraction of Inspired Oxygen 02/27/24 10:00 02/27/24 12:00 02/27/24 12:00 Temperature 98.5 F Pulse Rate 96 90 87 Respiratory Rate 19 Blood Pressure 134/88 Pulse Oximetry 96 Oxygen Delivery Fraction of Inspired Oxygen Exam Narrative: GENERAL APPEARANCE: disheveled female in no acute distress HEENT: normocephalic, atraumatic, normal conjunctiva and sclera, nares patient NECK: no lymphadenopathy, thyromegaly, or JVD MOUTH: normal lips, teeth, and gums CARDIOVASCULAR: RRR, normal S1 and S2, no rub RESPIRATORY: clear to auscultation bilaterally ABDOMEN: soft, nontender, nondistended, positive bowel sounds present EXTREMITIES: no evidence of cyanosis, clubbing, or edema NEUROLOGICAL: awake and alert; intermittent confusion, no focal deficits noted Results Lab Results 02/28/24 02:18 02/28/24 13:59 Lab results: Most recent lab results Calcium 9.4 mg/dL (8.4-10.2) 02/28/24 02:18 Phosphorus 3.0 mg/dL (2.5-4.5) 02/26/24 21:44 Phosphorus Cancelled 02/26/24 21:44 Magnesium 1.9 mg/dL (1.6-2.3) 02/28/24 02:18
[2024-02-27 12:49] LABS: Troponin I 0.202 ng/mL (0.000-0.034)
--- NOTE | 2024-02-27 13:06 | PC.NURSE ---
Sodium result of [address] Olson. Order received to decrease D5W to 75/hr
--- NOTE | 2024-02-27 13:16 | P.CONCA_ITS ---
Assessment and Plan Assessment and plan (1) Elevated troponin: Code(s): R79.89 - Other specified abnormal findings of blood chemistry Status: Acute Assessment and Plan: May be related to underlying seizure +/-underlying CAD. Significantly abnormal appearing EKG. Also takotsubo cardiomyopathy could cause something similar. Regardless, troponins are minimally elevated and are now down trending. Will repeat EKG in the morning. 2D echocardiogram with Doppler will be ordered. Start aspirin 81 mg p.o. daily. Metoprolol tartrate 12.5 mg p.o. b.i.d. will be initiated. Potassium is also low and this will be replaced with an additional 20 meq potassium chloride p.o. x1. Further workup and recommendations depending on the results of the above tests and particularly echocardiogram. She likely will need ischemic evaluation (2) Acute hypokalemia: Code(s): E87.6 - Hypokalemia Status: Acute Assessment and Plan: KCL 40 mg p.o. x1 (3) Acute hyponatremia: Code(s): E87.1 - Hypo-osmolality and hyponatremia Status: Acute Assessment and Plan: Per hospitalist/polymerization engineer (4) QT prolongation: Code(s): R94.31 - Abnormal electrocardiogram [ECG] [EKG] Status: Acute Assessment and Plan: Avoid QT prolonging meds. (5) Alcohol related seizure: Code(s): R56.9 - Unspecified convulsions Status: Acute Assessment and Plan: Neurology involved (6) Abnormal ECG: Code(s): R94.31 - Abnormal electrocardiogram [ECG] [EKG] Status: Acute Assessment and Plan: As detailed above. Significantly abnormal EKG. This may be a takotsubo related EKG or related to seizure in of itself. If ischemic, catheterization would be warranted. Recommendations depending on workup and results of tests as detailed above History of Present Illness History of Present Illness Consult date/time: 02/27/24 13:16 Requesting physician: Abrahan Moore MD Consult reason: Other (Elevated troponin, abnormal ECG) Reason For Visit: etoh withdrawal, seizure, hypoatremia, hypokalemia Narrative: Reason for consultation: Elevated troponin, abnormal ECG Date of service 02/27/2024 Requesting provider: Dr. Moore History: Patient is a 63-year-old female who has a history of lung cancer status post partial pneumonectomy, anxiety, depression, chronic alcohol use, seizure disorder who presented to the hospital following a witnessed seizure. Patient herself does not remember what happened but she does give a history of previous seizures. Not taking any medications at present. She does have some shortness of breath with climbing stairs which is not new or different and she related to her tobacco use. She does have some sharp stabbing chest pains at times but no exertional symptoms. Has some occasional edema which comes and goes and is not particularly new either. She denies any syncope, presyncope, paroxysmal nocturnal dyspnea, orthopnea, palpitation. The specifics about her admission is predominantly obtained reviewing the chart record. Reportedly she had a witnessed event that lasted approximately 2 minutes consisting of tonic clonic seizure activity. Her son who lives with her reportedly witnessed the seizure. She drinks about 6 beers per day, sometimes more sometimes lasts. Electrolytes are significantly abnormal also including low-sodium, low-potassium. In the process workup an EKG was performed showing significant ST and T-wave abnormalities anterior lateral leads. Tachycardia was also seen. Follow-up EKGs show improvement of her heart rate but still with significant anterolateral ST T wave abnormalities. Troponins were drawn which have peaked at 0.4 and now down trending. She again denies chest pain Review of Systems Review of Systems: All systems reviewed & are unremarkable except as noted in HPI and below Constitutional: Constitutional: Denies body ache(s) Eyes: Eyes: Denies blurry vision ENT: Denies Normal hearing present Cardiovascular: Cardiovascular: Denies lightheadedness Respiratory: Respiratory: Reports dyspnea and Reports dyspnea on exertion Gastrointestinal: Gastrointestinal: Denies abdominal pain Genitourinary: Genitourinary: Denies hematuria Musculoskeletal: Musculoskeletal: Denies back pain Integumentary/Breasts: Skin/Breast: Denies pruritus Neurologic: Denies Abnormal speech present Psychiatric: Psychiatric: Reports anxiety Endocrine: Endocrine: Denies excessive sweating Hematologic/Lymphatic: Hematologic/Lymphatic: Denies easy bruising Allergic/Immunologic: Allergic/Immunologic: Denies GI upset with certain foods PMFSH Past Medical History Medical History Alcohol abuse Lung cancer Seizures Surgical History Surgical History History of pneumonectomy Family History Family History Father Cancer Mother Hypertension Alcoholism Social History Social History Social History: Patient reports that she lives with her son Salvatore. She has 3 children. She has history of chronic alcohol abuse. She is vague in her report of the amount of alcohol that she drinks. She denied illicit substance use but urine drug screen positive for marijuana. She is a current smoker. She cannot tell me how much she smokes daily. Code status: Full code Surrogate decision maker: Salvatore (son) Smoking packs per day: 0.5 Smoking cigarettes per day: 10.0 Years smoked: 30 Smoking pack-years: 15.00 Smoking status: Current every day smoker Alcohol intake: current Drinks per week: 40 Substance use: former Substance use type: marijuana Do You Feel Safe in your Home?: Yes Lack of Transportation: YES Lack of Food: Sometimes True Current Housing: I Have Housing Concerned About Future Housing: No Difficulty Paying Gas/Electric Bills: No Difficulty Paying for Meds: No Currently Unemployed: No Education: High School Diploma/GED Difficulty w/ Childcare or Family Care: No Spiritual care concerns: No Meds Home Medications and Allergies Home Medications Medication Instructions Recorded Confirmed Type No Home Medications 02/26/24 02/26/24 History Allergies Allergy/AdvReac Type Severity Reaction Status Date / Time No Known Allergies Allergy Verified 02/26/24 20:38 Vital Signs Vital Signs - 24 hr 02/26/24 15:04 02/26/24 15:16 02/26/24 16:17 Temperature 36.5 C Pulse Rate 122 H 127 H Respiratory Rate 16 19 Blood Pressure 202/123 H 200/148 H Pulse Oximetry 100 99 97 Oxygen Delivery Room Air 02/26/24 16:40 02/26/24 17:28 02/26/24 17:35 Temperature Pulse Rate 119 H 101 H Respiratory Rate 16 20 Blood Pressure 176/109 H Pulse Oximetry 99 95 Oxygen Delivery Room Air 02/26/24 18:38 02/26/24 20:30 02/26/24 20:30 Temperature 36.6 C Pulse Rate 115 H 99 Respiratory Rate 15 20 Blood Pressure 135/97 H 163/119 H Pulse Oximetry 96 97 Oxygen Delivery Room Air 02/26/24 20:30 02/26/24 22:00 02/26/24 22:00 Temperature Pulse Rate 89 82 90 Respiratory Rate 20 Blood Pressure 101/77 Pulse Oximetry 98 Oxygen Delivery 02/26/24 23:17 02/27/24 00:00 02/27/24 00:00 Temperature 36.4 C L Pulse Rate 92 92 Respiratory Rate 20 Blood Pressure 112/78 Pulse Oximetry 95 Oxygen Delivery Room Air 02/27/24 02:00 02/27/24 04:00 02/27/24 04:00 Temperature 36.6 C Pulse Rate 97 87 Respiratory Rate 15 17 Blood Pressure 142/94 H 168/114 H Pulse Oximetry 100 99 Oxygen Delivery Room Air 02/27/24 04:00 02/27/24 05:36 02/27/24 07:59 Temperature Pulse Rate 99 96 Respiratory Rate 18 Blood Pressure 157/95 H Pulse Oximetry 95 Oxygen Delivery Room Air 02/27/24 08:00 02/27/24 08:00 02/27/24 10:00 Temperature 37.1 C Pulse Rate 93 89 96 Respiratory Rate 19 14 Blood Pressure 140/93 H 135/86 Pulse Oximetry 96 98 Oxygen Delivery 02/27/24 10:00 02/27/24 12:00 02/27/24 12:00 Temperature 36.9 C Pulse Rate 96 90 87 Respiratory Rate 19 Blood Pressure 134/88 Pulse Oximetry 96 Oxygen Delivery 02/27/24 12:00 Temperature Pulse Rate Respiratory Rate Blood Pressure Pulse Oximetry Oxygen Delivery Room Air Exam Narrative: Alert oriented. Appears stated age Const: General: comfortable and no acute distress HENMT: Ears: TM's normal bilaterally Face/Nose/Sinus: Normal nares present Eyes: General: appearance normal, both eyes and all related structures Sclera: sclerae normal Neck: Neck: supple and no JVD Chest: Other: No reproducible chest wall pain to palpation Resp: Effort & Inspection: normal respiratory effort Auscultation: clear to auscultation bilaterally Cardio: Rate: regular rate Rhythm: regular rhythm Heart sounds: Murmur heart sound present Other: 1-2/6 systolic ejection murmur GI: Inspection: non-distended GI Palp: Yes Soft to palpation Auscultation: normal bowel sounds Skin: General skin exam: normal color and no rashes or lesions noted Neuro: Speech: normal speech Sensory Exam: normal sensation Extrem: General: normal to inspection and no edema Psych: Mental Status: mental status grossly normal Affect: normal affect Results Labs and Meds 02/27/24 05:34 02/27/24 10:14 Lab results: Cardiac Enzymes 02/26/24 02/26/24 02/27/24 Range/Units 16:18 21:44 05:34 AST 50 H 38 H (14-36) U/L Troponin I 0.440 H* (0.000-0.034) ng/mL 02/27/24 02/27/24 Range/Units 05:37 10:14 AST (14-36) U/L Troponin I 0.304 H* D 0.202 H* D (0.000-0.034) ng/mL CBC 02/26/24 02/27/24 Range/Units 16:18 05:34 WBC 11.8 H 9.5 (4.5-10.0) K/mm3 RBC 4.48 3.84 L (4.2-5.4) M/mm3 Hgb 14.6 D 12.6 (12.0-15.0) g/dL Hct 40.7 35.8 L (37.0-47.0) % Plt Count 283 224 (150-375) k/mm3 Lymph # (Auto) 0.79 L (0.9-3.2) K/mm3 Dare # (Auto) 1.1 H (0.1-0.6) K/mm3 Eos # (Auto) 0.1 (0-0.3) K/mm3 Baso # (Auto) 0.0 (0.0-0.1) K/mm3 Comprehensive Metabolic Panel 02/26/24 02/26/24 02/27/24 Range/Units 16:18 18:42 05:34 Sodium 118 L* 120 L 128 L (137-145) mmol/L Potassium 2.7 L* 3.1 L 3.4 (3.4-5.0) mmol/L Chloride 78 L 79 L 95 L (98-107) mmol/L Carbon Dioxide 22 19 L 26 (22-30) mmol/L BUN 15 D 15 11 (7-17) mg/dL Creatinine 0.80 0.70 0.50 L (0.7-1.0) mg/dL Glucose 188 H 172 H 105 (65-110) mg/dL Calcium 10.6 H 10.7 H 9.0 (8.4-10.2) mg/dL AST 50 H 38 H (14-36) U/L ALT 24 20 (6-35) U/L Alkaline Phosphatase 91 63 (38-126) U/L Total Protein 9.0 H 7.0 (6.3-8.2) g/dL Albumin 5.3 H 4.0 (3.5-5.1) g/dL 02/27/24 Range/Units 10:14 Sodium 126 L (137-145) mmol/L Potassium (3.4-5.0) mmol/L Chloride (98-107) mmol/L Carbon Dioxide (22-30) mmol/L BUN (7-17) mg/dL Creatinine (0.7-1.0) mg/dL Glucose (65-110) mg/dL Calcium (8.4-10.2) mg/dL AST (14-36) U/L ALT (6-35) U/L Alkaline Phosphatase (38-126) U/L Total Protein (6.3-8.2) g/dL Albumin (3.5-5.1) g/dL Intake and Output 02/26/24 02/27/24 02/27/24 23:59 07:59 15:59 Intake Total 1570 1240 1243.3 Output Total 150 1500 Balance 1420 -260 1243.3 Intake: IV 1570 1000 523.3 Dextrose 5% 1,000 ml 1,000 ml @ 523.3 75 mls/hr IV CONT .[id number] [facility] Rx#:[id number] Sodium Chloride 0.9% IV 1,000 1000 1000 ml @ 125 mls/hr IV CONT .Q8H [facility] Rx#:[id number] Potassium Chloride Inj 40 meq 520 In Sodium Chloride 0.9% IV 500 ml @ 130 mls/hr IVPB ONCE STA Rx#:[id number] cefTRIAXone 1 GM/NS 50 ML 1 gm 50 In 50 ml @ 100 mls/hr IVPB ONCE STA Rx#:[id number] Oral 720 Tube Feeding 240 Output: Urine 150 1500 Patient Weight 02/27/24 23:59 Weight 60 kg EKGs are personally reviewed and independently interpreted showing sinus tachycardia or sinus rhythm with significant ST and T-wave abnormalities, consider ischemia versus hypertrophy. Abnormal ECG
[2024-02-27 14:32] LABS: Sodium 125 mmol/L (137-145)
[2024-02-27 18:09] LABS: Sodium 125 mmol/L (137-145)
[2024-02-27] MEDS: DEXTROSE 5% 1,000 ML 1,000 ML 75 ML IV CONT (18:19)
[2024-02-27] MEDS: ENOXAPARIN 60 MG/0.6 ML SYRINGE SUB-Q (18:19)
--- NOTE | 2024-02-27 18:53 | PC.NURSE ---
Pt transferred to [facility]. Silva PROCTOR received report. Pt's son at bedside
[2024-02-27] MEDS: METOPROLOL TARTRATE 12.5 MG TABLET PO (19:54)
[2024-02-27] MEDS: SODIUM CHLORIDE 0.9% IV 1,000 ML 75 ML IV CONT (19:54)
[2024-02-27 23:20] LABS: Sodium 128 mmol/L (137-145)
[2024-02-28] VITALS (34 sets, daily range): BP systolic 112–165; BP diastolic 70–105; PULSE 66–80; RESP 15–26; TEMP 36–36.9; O2SAT 99–100
[2024-02-28 00:34] LABS: Glucose Point of Care 117 mg/dl (65-105)
[2024-02-28 02:23] LABS: Hematocrit 34.5 % (37.0-47.0); Hemoglobin 11.5 g/dL (12.0-15.0); Mean Corpuscular HGB Conc 33.3 g/dl (32-36); Mean Corpuscular Hemoglobin 34.1 pg (26-34); Mean Corpuscular Volume 102.4 fl (80-100); Mean Platelet Volume 9.5 fl (7.4-10.4); Platelet Count Result 147 k/mm3 (150-375); Red Blood Count 3.37 M/mm3 (4.2-5.4); Red Cell Distribution Width 12.9 % (11.5-14.5); White Blood Count 6.4 K/mm3 (4.5-10.0)
[2024-02-28 02:35] LABS: Alanine Aminotransferase 20 U/L (6-35); Albumin Level 4.1 g/dL (3.5-5.1); Alkaline Phosphatase 67 U/L (38-126); Anion Gap 9 mmol/L (4-12); Aspartate Amino Transferase 32 U/L (14-36); Bilirubin,Total 1.2 mg/dL (0.2-1.3); Blood Urea Nitrogen 7 mg/dL (7-17); Calcium 9.4 mg/dL (8.4-10.2); Carbon Dioxide 22 mmol/L (22-30); Chloride 101 mmol/L (98-107); Estimated CRCL calculation 91 ml/min; Estimated Glomerular Filt Rate > 60; Glucose 100 mg/dL (65-110); Magnesium 1.9 mg/dL (1.6-2.3); Potassium 2.9 mmol/L (3.4-5.0); Sodium 132 mmol/L (137-145)
[2024-02-28] MEDS: POTASSIUM CHLORIDE 20 MEQ ER TABLET 80 MEQ PO (03:26)
[2024-02-28] MEDS: DEXTROSE 5%/0.45% SOD CHL 1,000 ML 75 ML IV CONT (03:27)
--- NOTE | 2024-02-28 08:00 | ECG_ITS ---
Test Date: 2024-02-28 09:08:20 Measurements Intervals [place] Rate: 77 P: 33 TN: 185 QRS: 47 QRSD: 72 T: 27 QT: 441 QTc: 499 Interpretive Statements SINUS RHYTHM MARKED T WAVE ABNORMALITY IN ANTEROLATERAL LEADS- CONSIDER ISCHEMIA ABNORMAL ECG Compared to ECG 02/27/2024 10:04:02 No significant changes Electronically Signed On 02-28-2024 11:57:20 VISUAL DEVELOPER by Bull Machado D.O.
[2024-02-28 08:06] LABS: Sodium 129 mmol/L (137-145)
[2024-02-28] MEDS: METOPROLOL TARTRATE 12.5 MG TABLET PO ×2 (08:18→21:00)
[2024-02-28] MEDS: ASPIRIN 81 MG ENTERIC TABLET PO (08:19)
[2024-02-28] MEDS: ROSUVASTATIN 20 MG TABLET PO (08:19)
[2024-02-28] MEDS: FOLIC ACID 1 MG TABLET PO (08:19)
[2024-02-28] MEDS: THIAMINE HCL 100 MG TABLET PO (08:19)
--- NOTE | 2024-02-28 10:10 | P.PNIM_ITS ---
Progress Note: A&P Assessment and Plan (1) Alcohol related seizure: Code(s): R56.9 - Unspecified convulsions Status: Acute (2) Acute hyponatremia: Code(s): E87.1 - Hypo-osmolality and hyponatremia Status: Acute (3) Acute hypokalemia: Code(s): E87.6 - Hypokalemia Status: Acute (4) Abnormal ECG: Code(s): R94.31 - Abnormal electrocardiogram [ECG] [EKG] Status: Acute (5) QT prolongation: Code(s): R94.31 - Abnormal electrocardiogram [ECG] [EKG] Status: Acute Plan Seizure: Code(s): R56.9 - Unspecified convulsions Status: Acute Assessment and Plan: likely secondary to either hyponatremia or alcohol withdrawal. not on any anti epileptic drugs. In management of sodium as below continue seizure precautions she is currently on scheduled Librium and p.r.n. Ativan Neurologist is following, appreciate neurologist input Hyponatremia: Code(s): E87.1 - Hypo-osmolality and hyponatremia Status: Acute Assessment and Plan: patient presented with sodium of 118 treated with isotonic fluids sodium increased to quickly to 128. changed to dextrose. Repeat sodium was 126. Continue D5 for another 4 hours and recheck BMP and then manage accordingly. patient is a heavy beer drinker Nephrology has been consulted. Na 132 then down to 129 am today Elevated troponin: slightly elevated troponin with normal EKG with no chest pain. Possible Myocardial injury due alcohol intoxication, but given the findings of The apical inferior wall, and apical anterior wall are hypokinetic on echocardiogram, patient may have NSTEMI Continue aspirin check echocardiogram Summary 1. Complete two-dimensional, color flow and Doppler transthoracic echocardiogram is performed. 2. Left ventricular chamber dimension is normal. 3. Left ventricular systolic function is normal, estimated at 65-70%. 4. There is mildly increased left ventricular wall thickness. 5. The left ventricular diastolic function is grade I diastolic dysfunction. 6. The apical cap is akinetic. 7. The apical inferior wall, and apical anterior wall are hypokinetic. 8. Left atrial chamber dimension is mildly enlarged. 9. There is mild tricuspid valve regurgitation. 10. There is mild pulmonic regurgitation. consult cardiology telemetry monitoring Appreciate professor of languages's input, cardiology considers the patient likely will need ischemic evaluation QT prolongation: Code(s): R94.31 - Abnormal electrocardiogram [ECG] [EKG] Status: Acute Assessment and Plan: could be secondary to electrolyte abnormalities. Avoid QT prolongation medication and has possible telemetry monitoring cardiology consultation Subjective Date/time seen: 02/28/24 10:10 Interval history: I saw exam patient today, patient feels better today, no seizure over the night. Mental status improving, patient is alert oriented Exam Narrative: GENERAL: Lethargic in no acute distress. Well-nourished. - EYES: EOMI. Anicteric. - HENT: Moist mucous membranes. - LUNGS: Clear to auscultation bilateral ly, no wheezing, rhonchi, or rales. - CARDIOVASCULAR: Regular rate and rhyth m. No murmur. No JVD. - ABDOMEN: Soft, non-tender and non-dist ended. No palpable masses. - EXTREMITIES: No edema. Peripheral puls es 2+. Non-tender. - NEUROLOGIC: No focal neurological defi cits. CN II-XII grossly intact. - PSYCHIATRIC: Awake, Alert and oriented x3. mood and affect, stable - SKIN: No rashes or lesions. Warm. - LYMPH: No cervical lymphadenopathy. Objective Data Vital Signs Vital Signs: Vital Signs - 24 hr 02/27/24 12:00 02/27/24 12:00 02/27/24 12:00 Temperature 98.5 F Pulse Rate 90 87 Respiratory Rate 19 Blood Pressure 134/88 Pulse Oximetry 96 Oxygen Delivery Room Air Fraction of Inspired Oxygen 02/27/24 14:03 02/27/24 14:00 02/27/24 14:00 Temperature Pulse Rate 92 90 Respiratory Rate 21 H Blood Pressure 117/82 Pulse Oximetry 100 99 Oxygen Delivery Autopap Fraction of Inspired Oxygen 21 02/27/24 16:00 02/27/24 16:00 02/27/24 16:00 Temperature 98.5 F Pulse Rate 101 H Respiratory Rate 18 Blood Pressure 117/90 117/90 Pulse Oximetry 100 Oxygen Delivery Room Air Fraction of Inspired Oxygen 02/27/24 16:00 02/27/24 18:00 02/27/24 19:54 Temperature Pulse Rate 66 66 93 Respiratory Rate Blood Pressure Pulse Oximetry Oxygen Delivery Fraction of Inspired Oxygen 02/27/24 20:03 02/27/24 20:00 02/27/24 20:00 Temperature 98.1 F Pulse Rate 101 H 85 Respiratory Rate 18 Blood Pressure 116/80 Pulse Oximetry 100 Oxygen Delivery Room Air Fraction of Inspired Oxygen 02/27/24 23:07 02/28/24 00:00 02/28/24 01:32 Temperature 98.0 F Pulse Rate 72 69 Respiratory Rate 18 Blood Pressure 112/70 Pulse Oximetry 100 Oxygen Delivery Room Air Fraction of Inspired Oxygen 02/28/24 03:43 02/28/24 03:49 02/28/24 04:00 Temperature 98.2 F Pulse Rate 77 79 Respiratory Rate 18 Blood Pressure 147/87 H Pulse Oximetry 100 Oxygen Delivery Room Air Fraction of Inspired Oxygen 02/28/24 07:46 02/28/24 08:18 02/28/24 08:45 Temperature 98.4 F Pulse Rate 77 80 Respiratory Rate 20 Blood Pressure 130/90 Pulse Oximetry 100 99 Oxygen Delivery Room Air Fraction of Inspired Oxygen 02/28/24 08:00 02/28/24 08:00 Temperature Pulse Rate 80 79 Respiratory Rate 20 Blood Pressure Pulse Oximetry 99 Oxygen Delivery Room Air Fraction of Inspired Oxygen 21 Intake/Output Intake/Output: Intake & Output 02/25/24 02/26/24 02/27/24 02/28/24 23:59 23:59 23:59 23:59 Intake Total 1570 3967.1 Output Total 150 1900 Balance 1420 2067.1 Meds/Results Medications: Active Medications Generic Name Dose Route Start Last Admin Trade Name Freq PRN Reason Stop Dose Admin Acetaminophen 650 mg 02/26/24 18:43 Acetaminophen 325 Mg Tablet PO Q4H PRN Mild Pain (1-3) or Fever Aspirin 81 mg 02/28/24 09:00 02/28/24 08:19 Aspirin 81 Mg Enteric Tablet PO 81 mg QAM [facility] Administration Chlordiazepoxide HCl 25 mg 02/27/24 00:00 02/28/24 05:19 Chlordiazepoxide (*Crx) 25 Mg Capsule PO Not Given Q6HR [facility] Enoxaparin Sodium 40 mg 02/27/24 09:00 02/27/24 07:51 Enoxaparin 40 Mg/0.4 Ml Syringe SUB-Q 40 mg DAILY [facility] Administration Folic Acid 1 mg 02/28/24 09:00 02/28/24 08:19 Folic Acid 1 Mg Tablet PO 1 mg DAILY [facility] Administration Ceftriaxone Sodium 1 gm in 50 mls @ 100 mls/hr 02/27/24 18:00 02/27/24 19:54 Rocephin 1 Gm/Ns 50 Ml IVPB Infused Q24H [facility] Infusion Dextrose/Sodium Chloride 1,000 mls @ 75 mls/hr 02/28/24 03:00 02/28/24 03:27 Dextrose 5% Sodium Chloride 0.45% IV CONT 75 mls/hr .[id number] [facility] Administration Lorazepam 2 mg 02/26/24 23:44 Lorazepam Inj (*Crx) 2 Mg/Ml Vial IV PUSH Q2H PRN CIWA > 15 Lorazepam 2 mg 02/26/24 23:44 Lorazepam Inj (*Crx) 2 Mg/Ml Vial IV PUSH Q4H PRN CIWA 8-15 Metoprolol Tartrate 12.5 mg 02/27/24 21:00 02/28/24 08:18 Metoprolol Tartrate 12.5 Mg Tablet PO 12.5 mg Q12HR [facility] Administration Ondansetron HCl 4 mg 02/26/24 18:43 Ondansetron Inj 4 Mg/2 Ml Vial IV PUSH Q4H PRN Nausea Perflutren Lipid Microsphere 0 ml 02/27/24 09:23 Perflutren Lipid Microspheres 1.5 Ml Vial Diluted To 10 Ml Total Volume IV PUSH 03/01/24 09:23 ONCE PRN adequate visualization Protocol Rosuvastatin Calcium 20 mg 02/28/24 09:00 02/28/24 08:19 Rosuvastatin 20 Mg Tablet PO 20 mg QAM [facility] Administration Thiamine HCl 100 mg 02/27/24 09:00 02/28/24 08:19 Thiamine Hcl 100 Mg Tablet PO 100 mg QAM [facility] Administration Radiology Results: ITS Impressions Head CT 02/26/24 16:02 IMPRESSION: 1. Normal brain. Chest X-Ray 02/26/24 16:04 IMPRESSION: 1. No acute cardiopulmonary disease. Labs Labs: Laboratory Results - last 24 hr 02/27/24 02/27/24 02/27/24 10:14 14:18 17:57 WBC RBC Hgb Hct MCV MCH MCHC RDW Plt Count MPV Sodium 126 L 125 L 125 L Potassium Chloride Carbon Dioxide Anion Gap BUN Creatinine Estim Creat Clear Calc Estimated GFR Glucose POC Capillary Glucose Calcium Magnesium Total Bilirubin AST ALT Alkaline Phosphatase Troponin I 0.202 H* D Total Protein Albumin 02/27/24 02/28/2402/27/24 22:08 00:31 02:18 WBC 6.4 RBC 3.37 L Hgb 11.5 L Hct 34.5 L MCV 102.4 H D MCH 34.1 H MCHC 33.3 RDW 12.9 Plt Count 147 L MPV 9.5 Sodium 128 L Cancelled Potassium Chloride Carbon Dioxide Anion Gap BUN Creatinine Estim Creat Clear Calc Estimated GFR Glucose POC Capillary Glucose 117 H Calcium Magnesium Total Bilirubin AST ALT Alkaline Phosphatase Troponin I Total Protein Albumin 02/28/24 02/28/24 02:18 07:45 WBC RBC Hgb Hct MCV MCH MCHC RDW Plt Count MPV Sodium 132 L 129 L Potassium 2.9 L Chloride 101 Carbon Dioxide 22 Anion Gap 9 BUN 7 Creatinine 0.50 L Estim Creat Clear Calc 91 Estimated GFR > 60 Glucose 100 POC Capillary Glucose Calcium 9.4 Magnesium 1.9 Total Bilirubin 1.2 AST 32 ALT 20 Alkaline Phosphatase 67 Troponin I Total Protein 8.0 Albumin 4.1
[2024-02-28 10:12] LABS: Sodium 131 mmol/L (137-145)
--- NOTE | 2024-02-28 11:20 | P.PNNP_ITS ---
Progress Note: A&P Assessment and Plan (1) Acute hyponatremia: Code(s): E87.1 - Hypo-osmolality and hyponatremia Status: Acute Assessment and Plan: * last sodium level was 132mmol/L in September 2022 * admitted with a sodium of 118mmol/L * overcorrection noted with normal saline up to 128mmol/L * this was slowed down with D5W IVFs * now close to if not back to baseline * suspicion falls on alcohol abuse as etiology for drop in sodium * will hold off on further testing at this time * follow trend of sodium (2) Alcohol related seizure: Code(s): R56.9 - Unspecified convulsions Status: Acute Assessment and Plan: * secondary to either hyponatremia versus alcohol withdrawal * not on any anti epileptic drugs. * continue seizure precautions * she is currently on scheduled Librium and p.r.n. Ativan - taper as tolerated * Neurology following (3) Acute hypokalemia: Code(s): E87.6 - Hypokalemia Status: Acute Assessment and Plan: * due to total potassium store depletion (GI loss and poor oral intake) * follow magnesium * follow trend of repeat K+ levels Not much else to add -- will follow from a distance. Subjective Date/time seen: 02/28/24 11:20 Interval history: Follow-up for acute on chronic hyponatremia. Sodium level appears to be improving with current therapy/interventions in association with stabilization of mentataion/neurological status; no further seizure activity noted; nursing reports poor oral intake initially but seems to be doing better at this time. Exam Narrative: General: WD/WN female in NAD Heart: normal S1 and S2; no rub Lungs: clear to auscultation Abdomen: soft, nontender, nondistended, positive bowel sounds Extremities: no cyanosis or clubbing; no edema Skin: warm and dry Objective Data Vital Signs Vital Signs: Vital Signs Temp Pulse Resp BP Pulse Ox O2 Del Method FiO2 02/28/24 11:05 74 02/28/24 11:10 72 20 100 Room Air 21 02/28/24 11:00 137/96 H 02/28/24 16:15 70 18 136/88 100 Room Air 02/28/24 16:00 68 18 137/89 100 Room Air 02/28/24 15:45 72 15 145/88 H 100 Room Air 02/28/24 10:00 73 02/28/24 11:25 96.8 F L 72 20 137/96 H 100 02/28/24 08:45 99 Room Air Intake/Output Intake/Output: Intake & Output 02/26/24 02/27/24 02/28/24 02/29/24 23:59 23:59 23:59 23:59 Intake Total 1570 3967.1 0 1200 Output Total 150 1900 600 900 Balance 1420 2067.1 -600 300 Meds/Results Medications: Active Medications Generic Name Dose Route Start Last Admin Trade Name Freq PRN Reason Stop Dose Admin Acetaminophen 650 mg 02/26/24 18:43 Acetaminophen 325 Mg Tablet PO Q4H PRN Mild Pain (1-3) or Fever Aspirin 81 mg 02/28/24 09:00 02/29/24 08:25 Aspirin 81 Mg Enteric Tablet PO 81 mg QAM [facility] Administration Chlordiazepoxide HCl 25 mg 02/27/24 00:00 02/29/24 06:36 Chlordiazepoxide (*Crx) 25 Mg Capsule PO Not Given Q6HR [facility] Enoxaparin Sodium 40 mg 02/27/24 09:00 02/27/24 07:51 Enoxaparin 40 Mg/0.4 Ml Syringe SUB-Q 40 mg DAILY [facility] Administration Folic Acid 1 mg 02/28/24 09:00 02/29/24 08:25 Folic Acid 1 Mg Tablet PO 1 mg DAILY [facility] Administration Ceftriaxone Sodium 1 gm in 50 mls @ 100 mls/hr 02/27/24 18:00 02/29/24 00:14 Rocephin 1 Gm/Ns 50 Ml IVPB Infused Q24H [facility] Infusion Lorazepam 2 mg 02/26/24 23:44 Lorazepam Inj (*Crx) 2 Mg/Ml Vial IV PUSH Q2H PRN CIWA > 15 Lorazepam 2 mg 02/26/24 23:44 Lorazepam Inj (*Crx) 2 Mg/Ml Vial IV PUSH Q4H PRN CIWA 8-15 Metoprolol Tartrate 12.5 mg 02/27/24 21:00 02/29/24 08:25 Metoprolol Tartrate 12.5 Mg Tablet PO 12.5 mg Q12HR [facility] Administration Ondansetron HCl 4 mg 02/26/24 18:43 Ondansetron Inj 4 Mg/2 Ml Vial IV PUSH Q4H PRN Nausea Perflutren Lipid Microsphere 0 ml 02/27/24 09:23 Perflutren Lipid Microspheres 1.5 Ml Vial Diluted To 10 Ml Total Volume IV PUSH 03/01/24 09:23 ONCE PRN adequate visualization Protocol Rosuvastatin Calcium 20 mg 02/28/24 09:00 02/29/24 08:25 Rosuvastatin 20 Mg Tablet PO 20 mg QAM [facility] Administration Thiamine HCl 100 mg 02/27/24 09:00 02/29/24 08:25 Thiamine Hcl 100 Mg Tablet PO 100 mg QAM [facility] Administration Radiology Results: ITS Impressions Head CT 02/26/24 16:02 IMPRESSION: 1. Normal brain. Chest X-Ray 02/26/24 16:04 IMPRESSION: 1. No acute cardiopulmonary disease. Labs Labs: Laboratory Results - last 24 hr 02/28/24 02/28/24 02/28/24 02:18 07:45 09:57 Sodium 132 L 129 L 131 L Potassium 2.9 L Chloride 101 Carbon Dioxide 22 Anion Gap 9 BUN 7 Creatinine 0.50 L Estim Creat Clear Calc 91 Estimated GFR > 60 Glucose 100 Calcium 9.4 Magnesium 1.9 Total Bilirubin 1.2 AST 32 ALT 20 Alkaline Phosphatase 67 Total Protein 8.0 Albumin 4.1
[2024-02-28 11:29] LABS: Glucose Point of Care 125 mg/dl (65-105)
[2024-02-28 14:19] LABS: Sodium 129 mmol/L (137-145)
--- NOTE | 2024-02-28 16:03 | P.PCNCC_ITS ---
Cardiac Cath Procedure Note Date of procedure:: 02/28/24 Performing physician:: CATHETERIZATION LABORATORY REPORT Procedure Date: 02/28/2024 Referring Physician: Dr. Branch Anesthesia: Versed and Fentanyl were ordered and given in my presence at 1512, procedure ended at 1522. Supervision of nurse monitored moderate sedation with 50mcg Fentanyl was provided for 10 minutes. Pre-op Diagnosis: Cardiomyopathy Post-op Diagnosis: Cardiomyopathy Procedure(s): Left heart catheterization with coronary angiography Access Site: Right radial artery Brief History and Clinical Indications: All risks, benefits and alternatives to left heart catheterization with or without percutaneous coronary intervention was discussed at length with the patient. Risk of complications including but not limited to bleeding, infection, arrhythmia, stroke, worsening kidney function, blood loss, groin hematoma, limb loss, emergency coronary artery bypass grafting, and even were discussed with the patient and all questions were answered. The patient understood and wished to proceed. Time out called, patient name, date of , medical record number, allergies, procedure performed, identify Education Administrative Assistant, patient and staff member concurred with accurate data, procedure carried on. Findings: LEFT HEART CATHETERIZATION FINDINGS: 1. Left main: The left main coronary artery is widely patent without any significant obstructive disease. 2. Left anterior descending: The LAD and the diagonal branches have mild luminal irregularities without any significant obstructive angiographic disease. 3. Left circumflex: The left circumflex artery is a dominant vessel that gives off 2 OM branches. In the ostial left circumflex there is 10% stenosis. In proximal left circumflex there is 10-20% stenosis. The remainder of the left circumflex and its OM branches are angiographically free of disease. 4. Right coronary artery: The RCA is a small nondominant vessel. The conus branch comes off right next to the ostium of the RCA and the catheter continually engages conus branch have which point a non selective angiogram of the right coronary artery was performed showing luminal irregularities. Given that this is a small nondominant vessel no further attempts were made to engage the right coronary artery. 5. Left ventricle: A. End-diastolic pressure 19 mmHg. B. LV gram deferred. C. No significant gradient across aortic valve on catheter pullback. 6. Opening AO pressure 123/89 and closing AO pressure 121/89 Description of Procedure: Informed consent signed and placed in the chart. Patient transferred to medical laboratory technologist room. Prepped and draped in usual sterile fashion. 2% lidocaine injected subcutaneously in right wrist area. 22-gauge venipuncture catheter used to access the right radial artery with the Seldinger technique. 6-FR slender sheath placed in right radial artery. Nitroglycerin 200mcg, Verapamil 2.5mg, and Heparin 5000U was given intraarterial through the sheath. J wire advanced under fluoroscopy 5F TIG diagnostic catheter engaged Left Main Coronary Artery. 5F TIG diagnostic catheter was not able to engaged Right Coronary Artery. 5F JR4 was used to nonselectively view the RCA angiographically. Multiple orthogonal angiogram obtained and reviewed JR4 diagnostic catheter crossed aortic valve to obtain LVEDP, LV angiogram deferred. Hemostasis was achieved by application of TR band. Assessment: Stress induced cardiomyopathy Post Operative Condition: Stable No significant blood loss Disposition: Floor Plan: The patient will be monitored in the recovery area. The patient can follow-up with cardiology outpatient. Please call with additional questions. Cardiology to sign off. Javan Moon Interventional Cardiology
--- NOTE | 2024-02-28 16:03 | WPDHPUPDATE1 ---
History and Physical Update Update Date/Time: 02/28/24 15:03 History and Physical has been reviewed, including an updated exam of the patient. There are NO changes in the patient's condition. Risks, benefits, and alternatives have been discussed and questions answered. Patient agrees to proceed with procedure.
--- NOTE | 2024-02-28 16:03 | WPDMODSED ---
Moderate Sedation Note-Pt Data Patient Data Allergies Allergy/AdvReac Type Severity Reaction Status Date / Time No Known Allergies Allergy Verified 02/26/24 20:38 Home Medications Medication Instructions Recorded Confirmed Type No Home Medications 02/26/24 02/26/24 History Current Medications: Active Medications Acetaminophen (Acetaminophen 325 Mg Tablet) 650 mg PO Q4H PRN PRN Reason: Mild Pain (1-3) or Fever Aspirin (Aspirin 81 Mg Enteric Tablet) 81 mg PO QAM [facility] Last Admin: 02/28/24 08:19 Dose: 81 mg Chlordiazepoxide HCl (Chlordiazepoxide (*Crx) 25 Mg Capsule) 25 mg PO Q6HR [facility] Last Admin: 02/28/24 13:46 Dose: Not Given Enoxaparin Sodium (Enoxaparin 40 Mg/0.4 Ml Syringe) 40 mg SUB-Q DAILY [facility] Last Admin: 02/27/24 07:51 Dose: 40 mg Folic Acid (Folic Acid 1 Mg Tablet) 1 mg PO DAILY [facility] Last Admin: 02/28/24 08:19 Dose: 1 mg Ceftriaxone Sodium (Rocephin 1 Gm/Ns 50 Ml) 1 gm in 50 mls @ 100 mls/hr IVPB Q24H [facility] Last Infusion: 02/27/24 19:54 Dose: Infused Dextrose/Sodium Chloride (Dextrose 5% Sodium Chloride 0.45%) 1,000 mls @ 75 mls/hr IV CONT .[id number] [facility] Last Admin: 02/28/24 03:27 Dose: 75 mls/hr Sodium Chloride (Normal Saline Iv) 1,000 mls @ 125 mls/hr IV CONT .Q8H ONE Stop: 02/29/24 00:01 Lorazepam (Lorazepam Inj (*Crx) 2 Mg/Ml Vial) 2 mg IV PUSH Q2H PRN PRN Reason: CIWA > 15 Lorazepam (Lorazepam Inj (*Crx) 2 Mg/Ml Vial) 2 mg IV PUSH Q4H PRN PRN Reason: CIWA 8-15 Metoprolol Tartrate (Metoprolol Tartrate 12.5 Mg Tablet) 12.5 mg PO Q12HR [facility] Last Admin: 02/28/24 08:18 Dose: 12.5 mg Ondansetron HCl (Ondansetron Inj 4 Mg/2 Ml Vial) 4 mg IV PUSH Q4H PRN PRN Reason: Nausea Perflutren Lipid Microsphere (Perflutren Lipid Microspheres 1.5 Ml Vial Diluted To 10 Ml Total Volume) 0 ml IV PUSH ONCE PRN; Protocol PRN Reason: adequate visualization Stop: 03/01/24 09:23 Rosuvastatin Calcium (Rosuvastatin 20 Mg Tablet) 20 mg PO QAM [facility] Last Admin: 02/28/24 08:19 Dose: 20 mg Thiamine HCl (Thiamine Hcl 100 Mg Tablet) 100 mg PO QAM [facility] Last Admin: 02/28/24 08:19 Dose: 100 mg Sedation/Anesthesia: No previous sedation/anesthesia problems (including family history). [facility] Past Medical History Medical History Alcohol abuse Lung cancer Seizures Surgical History Surgical History History of pneumonectomy Family History Family History Father Cancer Mother Hypertension Alcoholism Social History Social History Social History: Patient reports that she lives with her son Salvatore. She has 3 children. She has history of chronic alcohol abuse. She is vague in her report of the amount of alcohol that she drinks. She denied illicit substance use but urine drug screen positive for marijuana. She is a current smoker. She cannot tell me how much she smokes daily. Code status: Full code Surrogate decision maker: Salvatore (son) Smoking packs per day: 0.5 Smoking cigarettes per day: 10.0 Years smoked: 30 Smoking pack-years: 15.00 Smoking status: Current every day smoker Alcohol intake: current Drinks per week: 40 Substance use: former Substance use type: marijuana Do You Feel Safe in your Home?: Yes Lack of Transportation: YES Lack of Food: Sometimes True Current Housing: I Have Housing Concerned About Future Housing: No Difficulty Paying Gas/Electric Bills: No Difficulty Paying for Meds: No Currently Unemployed: No Education: High School Diploma/GED Difficulty w/ Childcare or Family Care: No Spiritual care concerns: No Mod Sed Physical Exam Physical Exam Pre Procedural Exam: Normal: Heart Size and Heart Rate Hours since solid foods: 13 Hours since liquid intake: 13 Mallampati Classification: class II Internal Medicine - PN: Obj Da Vital Signs Vital Signs: Vital Signs - 24 hr 02/27/24 18:00 02/27/24 19:54 02/27/24 20:03 Temperature 36.7 C Pulse Rate 66 93 101 H Respiratory Rate 18 Blood Pressure 116/80 Pulse Oximetry 100 Oxygen Delivery Fraction of Inspired Oxygen 02/27/24 20:00 02/27/24 20:00 02/27/24 23:07 Temperature Pulse Rate 85 Respiratory Rate Blood Pressure Pulse Oximetry Oxygen Delivery Room Air Room Air Fraction of Inspired Oxygen 02/28/24 00:00 02/28/24 01:32 02/28/24 03:43 Temperature 36.7 C Pulse Rate 72 69 Respiratory Rate 18 Blood Pressure 112/70 Pulse Oximetry 100 Oxygen Delivery Room Air Fraction of Inspired Oxygen 02/28/24 03:49 02/28/24 04:00 02/28/24 07:46 Temperature 36.8 C 36.9 C Pulse Rate 77 79 77 Respiratory Rate 18 20 Blood Pressure 147/87 H 130/90 Pulse Oximetry 100 100 Oxygen Delivery Fraction of Inspired Oxygen 02/28/24 08:18 02/28/24 08:45 02/28/24 08:00 Temperature Pulse Rate 80 80 Respiratory Rate 20 Blood Pressure Pulse Oximetry 99 99 Oxygen Delivery Room Air Room Air Fraction of Inspired Oxygen 21 02/28/24 08:00 02/28/24 11:25 02/28/24 10:00 Temperature 36.0 C L Pulse Rate 79 72 73 Respiratory Rate 20 Blood Pressure 137/96 H Pulse Oximetry 100 Oxygen Delivery Fraction of Inspired Oxygen 02/28/24 15:45 02/28/24 16:00 02/28/24 12:00 Temperature Pulse Rate 72 68 Respiratory Rate 15 18 Blood Pressure 145/88 H 137/89 137/96 H Pulse Oximetry 100 100 Oxygen Delivery Room Air Room Air Fraction of Inspired Oxygen 02/28/24 12:00 02/28/24 12:00 02/28/24 14:00 Temperature Pulse Rate 72 74 72 Respiratory Rate 20 Blood Pressure Pulse Oximetry 100 Oxygen Delivery Room Air Fraction of Inspired Oxygen 21 Intake/Output Intake/Output: Intake & Output 02/25/24 02/26/24 02/27/24 02/28/24 23:59 23:59 23:59 23:59 Intake Total 1570 3967.1 Output Total 150 1900 200 Balance 1420 2067.1 -200 Meds/Results Medications: Active Medications Generic Name Dose Route Start Last Admin Trade Name Freq PRN Reason Stop Dose Admin Acetaminophen 650 mg 02/26/24 18:43 Acetaminophen 325 Mg Tablet PO Q4H PRN Mild Pain (1-3) or Fever Aspirin 81 mg 02/28/24 09:00 02/28/24 08:19 Aspirin 81 Mg Enteric Tablet PO 81 mg QAM [facility] Administration Chlordiazepoxide HCl 25 mg 02/27/24 00:00 02/28/24 13:46 Chlordiazepoxide (*Crx) 25 Mg Capsule PO Not Given Q6HR [facility] Enoxaparin Sodium 40 mg 02/27/24 09:00 02/27/24 07:51 Enoxaparin 40 Mg/0.4 Ml Syringe SUB-Q 40 mg DAILY [facility] Administration Folic Acid 1 mg 02/28/24 09:00 02/28/24 08:19 Folic Acid 1 Mg Tablet PO 1 mg DAILY [facility] Administration Ceftriaxone Sodium 1 gm in 50 mls @ 100 mls/hr 02/27/24 18:00 02/27/24 19:54 Rocephin 1 Gm/Ns 50 Ml IVPB Infused Q24H [facility] Infusion Dextrose/Sodium Chloride 1,000 mls @ 75 mls/hr 02/28/24 03:00 02/28/24 03:27 Dextrose 5% Sodium Chloride 0.45% IV CONT 75 mls/hr .[id number] [facility] Administration Sodium Chloride 1,000 mls @ 125 mls/hr 02/28/24 16:02 Normal Saline Iv IV CONT 02/29/24 00:01 .Q8H ONE Lorazepam 2 mg 02/26/24 23:44 Lorazepam Inj (*Crx) 2 Mg/Ml Vial IV PUSH Q2H PRN CIWA > 15 Lorazepam 2 mg 02/26/24 23:44 Lorazepam Inj (*Crx) 2 Mg/Ml Vial IV PUSH Q4H PRN CIWA 8-15 Metoprolol Tartrate 12.5 mg 02/27/24 21:00 02/28/24 08:18 Metoprolol Tartrate 12.5 Mg Tablet PO 12.5 mg Q12HR [facility] Administration Ondansetron HCl 4 mg 02/26/24 18:43 Ondansetron Inj 4 Mg/2 Ml Vial IV PUSH Q4H PRN Nausea Perflutren Lipid Microsphere 0 ml 02/27/24 09:23 Perflutren Lipid Microspheres 1.5 Ml Vial Diluted To 10 Ml Total Volume IV PUSH 03/01/24 09:23 ONCE PRN adequate visualization Protocol Rosuvastatin Calcium 20 mg 02/28/24 09:00 02/28/24 08:19 Rosuvastatin 20 Mg Tablet PO 20 mg QAM [facility] Administration Thiamine HCl 100 mg 02/27/24 09:00 02/28/24 08:19 Thiamine Hcl 100 Mg Tablet PO 100 mg QAM [facility] Administration Radiology Results: ITS Impressions Head CT 02/26/24 16:02 IMPRESSION: 1. Normal brain. Chest X-Ray 02/26/24 16:04 IMPRESSION: 1. No acute cardiopulmonary disease. Labs 02/28/24 02:18 02/28/24 13:59 Labs: Laboratory Results - last 24 hr 02/27/24 02/27/24 02/28/24 17:57 22:08 00:31 WBC RBC Hgb Hct MCV MCH MCHC RDW Plt Count MPV Sodium 125 L 128 L Potassium Chloride Carbon Dioxide Anion Gap BUN Creatinine Estim Creat Clear Calc Estimated GFR Glucose POC Capillary Glucose 117 H Calcium Magnesium Total Bilirubin AST ALT Alkaline Phosphatase Total Protein Albumin 02/28/24 02/28/24 02/28/24 02:18 02:18 07:45 WBC 6.4 RBC 3.37 L Hgb 11.5 L Hct 34.5 L MCV 102.4 H D MCH 34.1 H MCHC 33.3 RDW 12.9 Plt Count 147 L MPV 9.5 Sodium Cancelled 132 L 129 L Potassium 2.9 L Chloride 101 Carbon Dioxide 22 Anion Gap 9 BUN 7 Creatinine 0.50 L Estim Creat Clear Calc 91 Estimated GFR > 60 Glucose 100 POC Capillary Glucose Calcium 9.4 Magnesium 1.9 Total Bilirubin 1.2 AST 32 ALT 20 Alkaline Phosphatase 67 Total Protein 8.0 Albumin 4.1 02/28/24 02/28/24 02/28/24 09:57 11:23 13:59 WBC RBC Hgb Hct MCV MCH MCHC RDW Plt Count MPV Sodium 131 L 129 L Potassium Chloride Carbon Dioxide Anion Gap BUN Creatinine Estim Creat Clear Calc Estimated GFR Glucose POC Capillary Glucose 125 H Calcium Magnesium Total Bilirubin AST ALT Alkaline Phosphatase Total Protein Albumin ASA Classification/Sedation ASA Classification/Sedation ASA Class: III Emergent: No Risks: Risks, benefits and alternatives explained and patient/family accepted plan for sedation. Patient re-evaluated immediately prior to sedation.
[2024-02-28] MEDS: SODIUM CHLORIDE 0.9% IV 1,000 ML 125 ML IV CONT (16:30)
[2024-02-28] MEDS: chlordiazePOXIDE (*CRX) 25 MG CAPSULE PO (19:30)
[2024-02-28 23:55] LABS: Glucose Point of Care 105 mg/dl (65-105)
[2024-02-29] VITALS (14 sets, daily range): BP systolic 117–150; BP diastolic 85–92; PULSE 68–86; RESP 18–20; TEMP 36.3–36.9; O2SAT 98–100
[2024-02-29] MEDS: chlordiazePOXIDE (*CRX) 25 MG CAPSULE PO ×3 (00:12→20:33)
[2024-02-29 05:07] LABS: Hematocrit 33.9 % (37.0-47.0); Hemoglobin 11.7 g/dL (12.0-15.0); Mean Corpuscular HGB Conc 34.5 g/dl (32-36); Mean Corpuscular Hemoglobin 33.4 pg (26-34); Mean Corpuscular Volume 96.9 fl (80-100); Platelet Count Result 230 k/mm3 (150-375); Red Cell Distribution Width 12.8 % (11.5-14.5); White Blood Count 6.9 K/mm3 (4.5-10.0)
[2024-02-29 05:22] LABS: Alanine Aminotransferase 34 U/L (6-35); Albumin Level 4.1 g/dL (3.5-5.1); Alkaline Phosphatase 65 U/L (38-126); Anion Gap 9 mmol/L (4-12); Aspartate Amino Transferase 49 U/L (14-36); Bilirubin,Total 0.6 mg/dL (0.2-1.3); Blood Urea Nitrogen 7 mg/dL (7-17); Calcium 9.6 mg/dL (8.4-10.2); Carbon Dioxide 22 mmol/L (22-30); Chloride 102 mmol/L (98-107); Estimated CRCL calculation 77 ml/min; Estimated Glomerular Filt Rate > 60; Glucose 96 mg/dL (65-110); Magnesium 1.8 mg/dL (1.6-2.3); Potassium 3.8 mmol/L (3.4-5.0); Sodium 133 mmol/L (137-145)
[2024-02-29] MEDS: THIAMINE HCL 100 MG TABLET PO (08:25)
[2024-02-29] MEDS: FOLIC ACID 1 MG TABLET PO (08:25)
[2024-02-29] MEDS: ROSUVASTATIN 20 MG TABLET PO (08:25)
[2024-02-29] MEDS: METOPROLOL TARTRATE 12.5 MG TABLET PO ×2 (08:25→20:34)
[2024-02-29] MEDS: ASPIRIN 81 MG ENTERIC TABLET PO (08:25)
--- NOTE | 2024-02-29 13:10 | P.PNIM_ITS ---
Progress Note: A&P Assessment and Plan (1) Alcohol related seizure: Code(s): R56.9 - Unspecified convulsions Status: Acute (2) Acute hyponatremia: Code(s): E87.1 - Hypo-osmolality and hyponatremia Status: Acute (3) Acute hypokalemia: Code(s): E87.6 - Hypokalemia Status: Acute (4) Abnormal ECG: Code(s): R94.31 - Abnormal electrocardiogram [ECG] [EKG] Status: Acute (5) QT prolongation: Code(s): R94.31 - Abnormal electrocardiogram [ECG] [EKG] Status: Acute Plan # Seizure: likely secondary to either hyponatremia or alcohol withdrawal. not on any anti epileptic drugs. In management of sodium as below continue seizure precautions she is currently on scheduled Librium and p.r.n. Ativan. Will slowly taper Neurologist is following, appreciate neurologist input # Hyponatremia: patient presented with sodium of 118 treated with isotonic fluids sodium increased to quickly to 128. changed to dextrose. Repeat sodium was 126. Continue D5 for another 4 hours and recheck BMP and then manage accordingly. patient is a heavy beer drinker Nephrology has been consulted. Sodium level stable # Elevated troponin: slightly elevated troponin with normal EKG with no chest pain. Possible Myocardial injury due alcohol intoxication, but given the findings of The apical inferior wall, and apical anterior wall are hypokinetic on echocardiogram, patient may have NSTEMI Continue aspirin check echocardiogram Summary 1. Complete two-dimensional, color flow and Doppler transthoracic echocardiogram is performed. 2. Left ventricular chamber dimension is normal. 3. Left ventricular systolic function is normal, estimated at 65-70%. 4. There is mildly increased left ventricular wall thickness. 5. The left ventricular diastolic function is grade I diastolic dysfunction. 6. The apical cap is akinetic. 7. The apical inferior wall, and apical anterior wall are hypokinetic. 8. Left atrial chamber dimension is mildly enlarged. 9. There is mild tricuspid valve regurgitation. 10. There is mild pulmonic regurgitation. consult cardiology telemetry monitoring Appreciate gem setter's input status post cardiac catheterization 02/28/2024 Left main without any significant obstructive disease. Left anterior descending with mild luminal irregularities. Left circumflex 10% stenosis in ostial left circumflex. 10-20% stenosis proximal left circumflex. RCA luminal irregularities Echo findings related to stress-induced cardiomyopathy # QT prolongation: could be secondary to electrolyte abnormalities. Avoid QT prolongation medication and has possible telemetry monitoring # alcohol dependence: Counseling done. # UTI: On ceftriaxone. Urine culture with no growth Subjective Date/time seen: 02/29/24 13:10 Interval history: No overnight events. Has been out of bed yet. No chest pain or shortness of breath. Discussed alcohol rehab with the patient. Review of Systems Review of Systems: All systems reviewed & are unremarkable except as noted in HPI and below ( HPI) Exam Narrative: GENERAL: Alert and oriented x3 no acute distress. Well-nourished. - EYES: EOMI. Anicteric. - HENT: Moist mucous membranes. - LUNGS: Clear to auscultation bilateral ly, no wheezing, rhonchi, or rales. - CARDIOVASCULAR: Regular rate and rhyth m. No murmur. No JVD. - ABDOMEN: Soft, non-tender and non-dist ended. No palpable masses. - EXTREMITIES: No edema. Peripheral puls es 2+. Non-tender. - NEUROLOGIC: No focal neurological defi cits. CN II-XII grossly intact. - PSYCHIATRIC: Awake, Alert and oriented x3. mood and affect, stable - SKIN: No rashes or lesions. Warm. - LYMPH: No cervical lymphadenopathy. Objective Data Vital Signs Vital Signs: Vital Signs - 24 hr 02/28/24 15:45 02/28/24 16:00 02/28/24 16:15 Temperature Pulse Rate 72 68 70 Respiratory Rate 15 18 18 Blood Pressure 145/88 H 137/89 136/88 Pulse Oximetry 100 100 100 Oxygen Delivery Room Air Room Air Room Air 02/28/24 14:00 02/28/24 16:30 02/28/24 16:45 Temperature Pulse Rate 72 66 73 Respiratory Rate 19 17 Blood Pressure 139/91 H 146/93 H Pulse Oximetry 100 100 Oxygen Delivery Room Air Room Air 02/28/24 17:15 02/28/24 17:00 02/28/24 17:30 Temperature Pulse Rate 72 71 72 Respiratory Rate 21 H 18 19 Blood Pressure 152/97 H 151/102 H 150/98 H Pulse Oximetry 100 100 100 Oxygen Delivery Room Air Room Air Room Air 02/28/24 17:45 02/28/24 18:00 02/28/24 18:15 Temperature Pulse Rate 70 73 74 Respiratory Rate 17 26 H 17 Blood Pressure 143/97 H 148/94 H 145/98 H Pulse Oximetry 100 100 100 Oxygen Delivery Room Air Room Air Room Air 02/28/24 18:30 02/28/24 18:45 02/28/24 19:00 Temperature Pulse Rate 73 70 72 Respiratory Rate 19 18 Blood Pressure 154/101 H 148/98 H 164/95 H Pulse Oximetry 100 100 100 Oxygen Delivery Room Air Room Air Room Air 02/28/24 19:15 02/28/24 19:30 02/28/24 19:45 Temperature Pulse Rate 74 74 73 Respiratory Rate 17 17 18 Blood Pressure 153/98 H 165/95 H 140/105 H Pulse Oximetry 100 100 100 Oxygen Delivery Room Air Room Air 02/28/24 20:00 02/28/24 20:37 02/28/24 21:00 Temperature 98.2 F Pulse Rate 72 76 77 Respiratory Rate 23 H 20 Blood Pressure 156/94 H 145/83 H Pulse Oximetry 100 100 Oxygen Delivery Room Air 02/28/24 20:00 02/28/24 22:00 02/28/24 22:48 Temperature 97.4 F L 98.0 F Pulse Rate 73 72 Respiratory Rate 20 20 Blood Pressure 117/72 133/78 Pulse Oximetry 100 100 Oxygen Delivery Room Air 02/28/24 22:00 02/28/24 23:31 02/29/24 00:01 Temperature 98.0 F Pulse Rate 75 69 Respiratory Rate 20 Blood Pressure 145/91 H Pulse Oximetry 100 Oxygen Delivery Room Air 02/29/24 00:00 02/29/24 04:00 02/29/24 04:36 Temperature 98.4 F Pulse Rate 69 77 Respiratory Rate 20 Blood Pressure 150/92 H Pulse Oximetry 100 Oxygen Delivery Room Air 02/29/24 04:00 02/29/24 05:40 02/29/24 07:53 Temperature 97.4 F L Pulse Rate 68 68 82 Respiratory Rate 20 Blood Pressure 146/91 H Pulse Oximetry 100 Oxygen Delivery 02/29/24 08:25 02/29/24 08:00 02/29/24 08:00 Temperature Pulse Rate 86 81 Respiratory Rate Blood Pressure Pulse Oximetry Oxygen Delivery Room Air 02/29/24 10:00 02/29/24 11:09 Temperature 97.5 F L Pulse Rate 76 68 Respiratory Rate 18 Blood Pressure 144/86 H Pulse Oximetry 100 Oxygen Delivery Intake/Output Intake/Output: Intake & Output 02/26/24 02/27/24 02/28/24 02/29/24 23:59 23:59 23:59 23:59 Intake Total 1570 3967.1 0 1680 Output Total 150 1900 600 900 Balance 1420 2067.1 -600 780 Meds/Results Medications: Active Medications Generic Name Dose Route Start Last Admin Trade Name Freq PRN Reason Stop Dose Admin Acetaminophen 650 mg 02/26/24 18:43 Acetaminophen 325 Mg Tablet PO Q4H PRN Mild Pain (1-3) or Fever Aspirin 81 mg 02/28/24 09:00 02/29/24 08:25 Aspirin 81 Mg Enteric Tablet PO 81 mg QAM WILFRIDO Administration Chlordiazepoxide HCl 25 mg 02/27/24 00:00 02/29/24 12:44 Chlordiazepoxide (*Crx) 25 Mg Capsule PO 25 mg Q6HR WILFRIDO Administration Enoxaparin Sodium 40 mg 02/27/24 09:00 02/27/24 07:51 Enoxaparin 40 Mg/0.4 Ml Syringe SUB-Q 40 mg DAILY WILFRIDO Administration Folic Acid 1 mg 02/28/24 09:00 02/29/24 08:25 Folic Acid 1 Mg Tablet PO 1 mg DAILY WIFLRIDO Administration Ceftriaxone Sodium 1 gm in 50 mls @ 100 mls/hr 02/27/24 18:00 02/29/24 00:14 Rocephin 1 Gm/Ns 50 Ml IVPB Infused Q24H WILFRIDO Infusion Lorazepam 2 mg 02/26/24 23:44 Lorazepam Inj (*Crx) 2 Mg/Ml Vial IV PUSH Q2H PRN CIWA > 15 Lorazepam 2 mg 02/26/24 23:44 Lorazepam Inj (*Crx) 2 Mg/Ml Vial IV PUSH Q4H PRN CIWA 8-15 Metoprolol Tartrate 12.5 mg 02/27/24 21:00 02/29/24 08:25 Metoprolol Tartrate 12.5 Mg Tablet PO 12.5 mg Q12HR WILFRIDO Administration Ondansetron HCl 4 mg 02/26/24 18:43 Ondansetron Inj 4 Mg/2 Ml Vial IV PUSH Q4H PRN Nausea Perflutren Lipid Microsphere 0 ml 02/27/24 09:23 Perflutren Lipid Microspheres 1.5 Ml Vial Diluted To 10 Ml Total Volume IV PUSH 03/01/24 09:23 ONCE PRN adequate visualization Protocol Rosuvastatin Calcium 20 mg 02/28/24 09:00 02/29/24 08:25 Rosuvastatin 20 Mg Tablet PO 20 mg QAM WILFRIDO Administration Thiamine HCl 100 mg 02/27/24 09:00 02/29/24 08:25 Thiamine Hcl 100 Mg Tablet PO 100 mg QAM WILFRIDO Administration Radiology Results: ITS Impressions Head CT 02/26/24 16:02 IMPRESSION: 1. Normal brain. Chest X-Ray 02/26/24 16:04 IMPRESSION: 1. No acute cardiopulmonary disease. Labs Labs: Laboratory Results - last 24 hr 02/28/24 02/28/24 02/29/24 13:59 23:47 04:30 WBC 6.9 RBC 3.50 L Hgb 11.7 L Hct 33.9 L MCV 96.9 D MCH 33.4 MCHC 34.5 RDW 12.8 Plt Count 230 D MPV 10.0 Sodium 129 L 133 L Potassium 3.8 Chloride 102 Carbon Dioxide 22 Anion Gap 9 BUN 7 Creatinine 0.60 L Estim Creat Clear Calc 77 Estimated GFR > 60 Glucose 96 POC Capillary Glucose 105 Calcium 9.6 Magnesium 1.8 Total Bilirubin 0.6 AST 49 H ALT 34 Alkaline Phosphatase 65 Total Protein 7.0 Albumin 4.1
[2024-03-01] VITALS (8 sets, daily range): BP systolic 109–131; BP diastolic 58–87; PULSE 60–78; RESP 16–18; TEMP 36.4–36.7; O2SAT 98–100
[2024-03-01] MEDS: chlordiazePOXIDE (*CRX) 25 MG CAPSULE PO ×3 (04:44→22:31)
[2024-03-01 05:03] LABS: Hematocrit 32.8 % (37.0-47.0); Hemoglobin 11.2 g/dL (12.0-15.0); Mean Corpuscular HGB Conc 34.1 g/dl (32-36); Mean Corpuscular Hemoglobin 33.4 pg (26-34); Mean Corpuscular Volume 97.9 fl (80-100); Mean Platelet Volume 10.2 fl (7.4-10.4); Platelet Count Result 235 k/mm3 (150-375); Red Blood Count 3.35 M/mm3 (4.2-5.4); Red Cell Distribution Width 12.7 % (11.5-14.5); White Blood Count 5.4 K/mm3 (4.5-10.0)
[2024-03-01 05:28] LABS: Alanine Aminotransferase 30 U/L (6-35); Albumin Level 3.9 g/dL (3.5-5.1); Alkaline Phosphatase 63 U/L (38-126); Anion Gap 10 mmol/L (4-12); Aspartate Amino Transferase 32 U/L (14-36); Bilirubin,Total 0.4 mg/dL (0.2-1.3); Blood Urea Nitrogen 13 mg/dL (7-17); Calcium 9.5 mg/dL (8.4-10.2); Carbon Dioxide 22 mmol/L (22-30); Chloride 102 mmol/L (98-107); Estimated CRCL calculation 77 ml/min; Estimated Glomerular Filt Rate > 60; Glucose 101 mg/dL (65-110); Magnesium 1.7 mg/dL (1.6-2.3); Potassium 3.5 mmol/L (3.4-5.0); Sodium 134 mmol/L (137-145)
[2024-03-01] MEDS: FOLIC ACID 1 MG TABLET PO (09:12)
[2024-03-01] MEDS: THIAMINE HCL 100 MG TABLET PO (09:12)
[2024-03-01] MEDS: ROSUVASTATIN 20 MG TABLET PO (09:12)
[2024-03-01] MEDS: ASPIRIN 81 MG ENTERIC TABLET PO (09:12)
[2024-03-01] MEDS: METOPROLOL TARTRATE 12.5 MG TABLET PO ×2 (09:12→22:31)
[2024-03-01] MEDS: ACETAMINOPHEN 325 MG TABLET 650 MG PO ×2 (09:43→18:04)
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
--- NOTE | 2024-03-01 14:14 | PCPTNOTE ---
Pt has an ortho consult pending. Waiting for wait bearing status. Will follow.
[2024-03-02 00:21] VITALS: BP 120/74; PULSE 64; RESP 18; TEMP 36.4; O2SAT 100
--- NOTE | 2024-03-02 00:59 | PC.NURSE ---
This patient, Candace Melo, was received from IMU on 03/02/24 at 0100. Patient/family oriented to unit policies and routines
--- NOTE | 2024-03-02 01:05 | PC.NURSE ---
This patient, Candace Melo, was transferred to room [facility]- on 03/02/24 at 0107 Personal belongings sent with patient. Report given to HITESH Calderon. Appropriate documentation sent with patient.
[2024-03-02] MEDS: chlordiazePOXIDE (*CRX) 25 MG CAPSULE PO ×3 (04:40→21:12)
[2024-03-02 06:11] LABS: Hematocrit 32.8 % (37.0-47.0); Hemoglobin 11.4 g/dL (12.0-15.0); Mean Corpuscular HGB Conc 34.8 g/dl (32-36); Mean Corpuscular Hemoglobin 33.7 pg (26-34); Mean Platelet Volume 9.7 fl (7.4-10.4); Platelet Count Result 239 k/mm3 (150-375); Red Blood Count 3.38 M/mm3 (4.2-5.4); Red Cell Distribution Width 12.9 % (11.5-14.5); White Blood Count 4.1 K/mm3 (4.5-10.0)
[2024-03-02 06:25] LABS: Alanine Aminotransferase 29 U/L (6-35); Alkaline Phosphatase 64 U/L (38-126); Anion Gap 9 mmol/L (4-12); Aspartate Amino Transferase 29 U/L (14-36); Bilirubin,Total 0.3 mg/dL (0.2-1.3); Blood Urea Nitrogen 13 mg/dL (7-17); Calcium 9.4 mg/dL (8.4-10.2); Carbon Dioxide 21 mmol/L (22-30); Chloride 105 mmol/L (98-107); Estimated CRCL calculation 77 ml/min; Estimated Glomerular Filt Rate > 60; Glucose 100 mg/dL (65-110); Magnesium 1.6 mg/dL (1.6-2.3); Potassium 3.4 mmol/L (3.4-5.0); Sodium 135 mmol/L (137-145)
[2024-03-02 08:00] VITALS: BP 122/74; PULSE 68; RESP 18; TEMP 36.7; O2SAT 100
[2024-03-02] MEDS: FOLIC ACID 1 MG TABLET PO (09:06)
[2024-03-02] MEDS: THIAMINE HCL 100 MG TABLET PO (09:07)
[2024-03-02] MEDS: ROSUVASTATIN 20 MG TABLET PO (09:07)
[2024-03-02] MEDS: ASPIRIN 81 MG ENTERIC TABLET PO (09:07)
[2024-03-02] MEDS: METOPROLOL TARTRATE 12.5 MG TABLET PO ×2 (09:07→22:15)
--- NOTE | 2024-03-02 12:43 | P.PNIM_ITS ---
Progress Note: A&P Assessment and Plan (1) Alcohol related seizure: Code(s): R56.9 - Unspecified convulsions Status: Acute (2) Acute hyponatremia: Code(s): E87.1 - Hypo-osmolality and hyponatremia Status: Acute (3) Acute hypokalemia: Code(s): E87.6 - Hypokalemia Status: Acute (4) Abnormal ECG: Code(s): R94.31 - Abnormal electrocardiogram [ECG] [EKG] Status: Acute (5) QT prolongation: Code(s): R94.31 - Abnormal electrocardiogram [ECG] [EKG] Status: Acute Plan # Seizure: likely secondary to either hyponatremia or alcohol withdrawal. not on any anti epileptic drugs. In management of sodium as below continue seizure precautions she is currently on scheduled Librium and p.r.n. Ativan. Will slowly taper Neurologist is following, appreciate neurologist input # Hyponatremia: patient presented with sodium of 118 treated with isotonic fluids sodium increased to quickly to 128. changed to dextrose. Repeat sodium was 126. Continue D5 for another 4 hours and recheck BMP and then manage accordingly. patient is a heavy beer drinker Nephrology has been consulted. Sodium level stable # Elevated troponin: slightly elevated troponin with normal EKG with no chest pain. Possible Myocardial injury due alcohol intoxication, but given the findings of The apical inferior wall, and apical anterior wall are hypokinetic on echocardiogram, patient may have NSTEMI Continue aspirin check echocardiogram Summary 1. Complete two-dimensional, color flow and Doppler transthoracic echocardiogram is performed. 2. Left ventricular chamber dimension is normal. 3. Left ventricular systolic function is normal, estimated at 65-70%. 4. There is mildly increased left ventricular wall thickness. 5. The left ventricular diastolic function is grade I diastolic dysfunction. 6. The apical cap is akinetic. 7. The apical inferior wall, and apical anterior wall are hypokinetic. 8. Left atrial chamber dimension is mildly enlarged. 9. There is mild tricuspid valve regurgitation. 10. There is mild pulmonic regurgitation. consult cardiology telemetry monitoring Appreciate bilingual loan processor's input status post cardiac catheterization 02/28/2024 Left main without any significant obstructive disease. Left anterior descending with mild luminal irregularities. Left circumflex 10% stenosis in ostial left circumflex. 10-20% stenosis proximal left circumflex. RCA luminal irregularities Echo findings related to stress-induced cardiomyopathy # QT prolongation: could be secondary to electrolyte abnormalities. Avoid QT prolongation medication and has possible telemetry monitoring # left foot pain: X-ray with metatarsal fracture, orthopedic consultation, walking boot ,ortho consultation awaiting # alcohol dependence: Counseling done. # UTI: On ceftriaxone. Urine culture with no growth Switch to oral Subjective Date/time seen: 03/02/24 12:43 Interval history: No overnight events. tearful again. Complains of not being able to use a boot. Review of Systems Review of Systems: All systems reviewed & are unremarkable except as noted in HPI and below ( HPI) Exam Narrative: GENERAL: Alert and oriented x3 no acute distress. Well-nourished. - EYES: EOMI. Anicteric. - HENT: Moist mucous membranes. - LUNGS: Clear to auscultation bilateral ly, no wheezing, rhonchi, or rales. - CARDIOVASCULAR: Regular rate and rhyth m. No murmur. No JVD. - ABDOMEN: Soft, non-tender and non-dist ended. No palpable masses. - EXTREMITIES: No edema. Peripheral puls es 2+. Non-tender. - NEUROLOGIC: No focal neurological defi cits. CN II-XII grossly intact. - PSYCHIATRIC: Awake, Alert and oriented x3. mood and affect, stable - SKIN: No rashes or lesions. Warm. - LYMPH: No cervical lymphadenopathy. Objective Data Vital Signs Vital Signs: Vital Signs - 24 hr 03/01/24 14:31 03/01/24 15:09 03/01/24 19:33 Temperature 97.5 F L 97.6 F Pulse Rate 78 71 Respiratory Rate 16 18 Blood Pressure 109/58 L 124/87 Pulse Oximetry 99 100 Oxygen Delivery Room Air 03/01/24 22:31 03/01/24 21:40 03/02/24 00:21 Temperature 97.6 F Pulse Rate 66 71 64 Respiratory Rate 18 18 Blood Pressure 120/74 Pulse Oximetry 100 100 Oxygen Delivery Room Air 03/02/24 07:44 03/02/24 08:00 Temperature 98.1 F Pulse Rate 68 Respiratory Rate 18 Blood Pressure 122/74 Pulse Oximetry 100 Oxygen Delivery Room Air Intake/Output Intake/Output: Intake & Output 02/28/24 02/29/24 03/01/24 03/02/24 23:59 23:59 23:59 23:59 Intake Total 0 2370 810 840 Output Total 600 900 900 Balance -600 1470 -90 840 Meds/Results Medications: Active Medications Generic Name Dose Route Start Last Admin Trade Name Freq PRN Reason Stop Dose Admin Acetaminophen 650 mg 02/26/24 18:43 03/01/24 18:04 Acetaminophen 325 Mg Tablet PO 650 mg Q4H PRN Administration Mild Pain (1-3) or Fever Aspirin 81 mg 02/28/24 09:00 03/02/24 09:07 Aspirin 81 Mg Enteric Tablet PO 81 mg QAM WILFRIDO Administration Chlordiazepoxide HCl 25 mg 02/29/24 20:00 03/02/24 11:40 Chlordiazepoxide (*Crx) 25 Mg Capsule PO 25 mg Q8H WILFRIDO Administration Enoxaparin Sodium 40 mg 02/27/24 09:00 02/27/24 07:51 Enoxaparin 40 Mg/0.4 Ml Syringe SUB-Q 40 mg DAILY WILFRIDO Administration Folic Acid 1 mg 02/28/24 09:00 03/02/24 09:06 Folic Acid 1 Mg Tablet PO 1 mg DAILY WILFRIDO Administration Ceftriaxone Sodium 1 gm in 50 mls @ 100 mls/hr 02/27/24 18:00 03/01/24 19:00 Rocephin 1 Gm/Ns 50 Ml IVPB Infused Q24H WILFRIDO Infusion Lorazepam 2 mg 02/26/24 23:44 Lorazepam Inj (*Crx) 2 Mg/Ml Vial IV PUSH Q2H PRN CIWA > 15 Lorazepam 2 mg 02/26/24 23:44 Lorazepam Inj (*Crx) 2 Mg/Ml Vial IV PUSH Q4H PRN CIWA 8-15 Metoprolol Tartrate 12.5 mg 02/27/24 21:00 03/02/24 09:07 Metoprolol Tartrate 12.5 Mg Tablet PO 12.5 mg Q12HR WILFRIDO Administration Ondansetron HCl 4 mg 02/26/24 18:43 Ondansetron Inj 4 Mg/2 Ml Vial IV PUSH Q4H PRN Nausea Rosuvastatin Calcium 20 mg 02/28/24 09:00 03/02/24 09:07 Rosuvastatin 20 Mg Tablet PO 20 mg QAM WILFRIDO Administration Thiamine HCl 100 mg 02/27/24 09:00 03/02/24 09:07 Thiamine Hcl 100 Mg Tablet PO 100 mg QAM WILFRIDO Administration Radiology Results: ITS Impressions Head CT 02/26/24 16:02 IMPRESSION: 1. Normal brain. Chest X-Ray 02/26/24 16:04 IMPRESSION: 1. No acute cardiopulmonary disease. Foot X-Ray 02/29/24 21:42 IMPRESSION: Subacute fractures of the proximal second and third tarsal and distal fourth metatarsal are suspected for which traumatic history is needed. Diffuse bony demineralization and forefoot soft tissue swelling. Labs Labs: Laboratory Results - last 24 hr 03/02/24 06:02 WBC 4.1 L RBC 3.38 L Hgb 11.4 L Hct 32.8 L MCV 97.0 MCH 33.7 MCHC 34.8 RDW 12.9 Plt Count 239 MPV 9.7 Sodium 135 L Potassium 3.4 Chloride 105 Carbon Dioxide 21 L Anion Gap 9 BUN 13 Creatinine 0.60 L Estim Creat Clear Calc 77 Estimated GFR > 60 Glucose 100 Calcium 9.4 Magnesium 1.6 Total Bilirubin 0.3 AST 29 ALT 29 Alkaline Phosphatase 64 Total Protein 7.0 Albumin 4.0
[2024-03-02 16:00] VITALS: BP 120/48; PULSE 78; RESP 18; TEMP 36.7; O2SAT 96
[2024-03-02 20:00] VITALS: O2SAT 100
[2024-03-02 21:00] VITALS: BP 102/69; PULSE 70; RESP 18; TEMP 36.3; O2SAT 100
[2024-03-02] MEDS: CEFDINIR 300 MG CAPSULE PO (21:11)
[2024-03-02 22:10] VITALS: BP 105/64; PULSE 71; RESP 14; TEMP 36.3; O2SAT 100
[2024-03-03 05:53] VITALS: BP 109/68; PULSE 69; RESP 18; TEMP 36; O2SAT 100
[2024-03-03 07:33] LABS: Hematocrit 32.3 % (37.0-47.0); Hemoglobin 10.7 g/dL (12.0-15.0); Mean Corpuscular HGB Conc 33.1 g/dl (32-36); Mean Corpuscular Hemoglobin 32.5 pg (26-34); Mean Corpuscular Volume 98.2 fl (80-100); Mean Platelet Volume 9.9 fl (7.4-10.4); Platelet Count Result 262 k/mm3 (150-375); Red Blood Count 3.29 M/mm3 (4.2-5.4); Red Cell Distribution Width 12.7 % (11.5-14.5); White Blood Count 5.6 K/mm3 (4.5-10.0)
[2024-03-03 07:47] LABS: Alanine Aminotransferase 28 U/L (6-35); Albumin Level 4.1 g/dL (3.5-5.1); Alkaline Phosphatase 66 U/L (38-126); Anion Gap 9 mmol/L (4-12); Aspartate Amino Transferase 27 U/L (14-36); Bilirubin,Total 0.4 mg/dL (0.2-1.3); Blood Urea Nitrogen 12 mg/dL (7-17); Calcium 9.5 mg/dL (8.4-10.2); Carbon Dioxide 24 mmol/L (22-30); Chloride 102 mmol/L (98-107); Estimated CRCL calculation 67 ml/min; Estimated Glomerular Filt Rate > 60; Glucose 103 mg/dL (65-110); Magnesium 1.7 mg/dL (1.6-2.3); Potassium 3.7 mmol/L (3.4-5.0); Sodium 135 mmol/L (137-145)
[2024-03-03] MEDS: FOLIC ACID 1 MG TABLET PO (08:30)
[2024-03-03] MEDS: THIAMINE HCL 100 MG TABLET PO (08:30)
[2024-03-03] MEDS: ROSUVASTATIN 20 MG TABLET PO (08:30)
[2024-03-03] MEDS: CEFDINIR 300 MG CAPSULE PO (08:30)
[2024-03-03] MEDS: ASPIRIN 81 MG ENTERIC TABLET PO (08:30)
[2024-03-03] MEDS: chlordiazePOXIDE (*CRX) 25 MG CAPSULE PO (08:30)
[2024-03-03] MEDS: METOPROLOL TARTRATE 12.5 MG TABLET PO (08:30)
[2024-03-03 14:25] VITALS: BP 95/71; PULSE 74; RESP 18; TEMP 36.5; O2SAT 100
--- NOTE | 2024-03-03 15:58 | P.CONOP_ITS ---
Assessment and Plan Assessment and plan (1) Foot fracture, left: Qualifiers: Encounter type: initial encounter Fracture type: closed Qualified Code(s): S92.902A - Unspecified fracture of left foot, initial encounter for closed fracture Code(s): S92.902A - Unspecified fracture of left foot, initial encounter for closed fracture Status: Acute Assessment and Plan: Radiographs of the left foot the ER reveal subacute fractures of the proximal second and third tarsal and distal fourth metatarsal. The proximal 2nd and 3rd tarsals appear to be subacute in nature with new callus formation while the distal 4th metatarsal fracture appears more acute. Diffuse bony demineralization and forefoot soft tissue swelling. The fracture type and injury as well as radiographs discussed with the patient. Operative and nonoperative treatment options reviewed. Recommended non operative treatment. Risk of nonunion, malunion or late displacement discussed. Stiffness, pain and possible dysfunction of the joint discussed. Fracture precautions and activity restrictions reviewed. The patient verbalizes understanding. Patient has been previously fit with a fracture boot for which she has non compliant. Discussed use of postop shoe with nonweightbearing of the left lower extremity or partial weight-bearing on the heel. Patient believes she may be able to be more compliant with this. Discussed ability to bear more weight with fracture boot however patient feels that it is too bulky in nature. We will order postop shoe. Recommend walker for pressure offloading. Ambulation on heel only. Pain control. Ice. Elevation. Given neuropathy and alcohol use, patient has potential for poor bone healing. Recommended continued alcohol cessation. Defer outpatient treatment to the hospitalist service as well as primary care provider. Discussed importance of proper shoe wear and daily foot checks. Follow up in the outpatient orthopedic clinic in approximately 6 weeks for repeat radiographs of the left foot and progression of weight-bearing. Plan Reviewed history, exam, radiographs and current labs with attending MD and covering surgeon, Dr. Grullon, who agrees with current plan as indicated above. No further recommendations from Dr. Grullon at this time. History of Present Illness HPI Consult date: 03/03/24 Chief complaint: etoh withdrawal, seizure, hypoatremia, hypokalemia Narrative: Orthopedic consult for this 63-year-old female who initially admitted to the emergency room status post seizure at home. She was found to be in alcohol withdrawal with hyponatremia and hypokalemia. Per patient report, she had a left foot injury in May of 2023 and did not seek medical attention at that time. She had pain for several months following the initial injury and then it slowly resolved. She has had swelling intermittently since that time as well in the left foot. The patient complained of left foot pain and swelling after medical stabilization. The patient believes she may have hit her foot during the time of procedure which prompted arrival to the hospital. Radiographs of the left foot the ER reveal subacute fractures of the proximal second and third tarsal and distal fourth metatarsal. The proximal 2nd and 3rd tarsals appear to be subacute in nature with new callus formation while the distal 4th metatarsal fracture appears more acute. Diffuse bony demineralization and forefoot soft tissue swelling. Patient has a history of neuropathy. Orthopedic consult req uested for recommendations. Review of Systems Review of Systems: All systems reviewed & are unremarkable except as noted in HPI and below PMFSH Past Medical History Medical History (Updated 03/03/24 @ 16:05 by KARIE Diaz) Alcohol abuse Foot fracture, left Lung cancer Seizures Surgical History Surgical History History of pneumonectomy Family History Family History Father Cancer Mother Hypertension Alcoholism Social History Social History Social History: Patient reports that she lives with her son Salvatore. She has 3 children. She has history of chronic alcohol abuse. She is vague in her report of the amount of alcohol that she drinks. She denied illicit substance use but urine drug screen positive for marijuana. She is a current smoker. She cannot tell me how much she smokes daily. Code status: Full code Surrogate decision maker: Salvatore (son) Smoking packs per day: 0.5 Smoking cigarettes per day: 10.0 Years smoked: 30 Smoking pack-years: 15.00 Smoking status: Current every day smoker Alcohol intake: current Drinks per week: 40 Substance use: former Substance use type: marijuana Do You Feel Safe in your Home?: Yes Lack of Transportation: YES Lack of Food: Sometimes True Current Housing: I Have Housing Concerned About Future Housing: No Difficulty Paying Gas/Electric Bills: No Difficulty Paying for Meds: No Currently Unemployed: No Education: High School Diploma/GED Difficulty w/ Childcare or Family Care: No Spiritual care concerns: No Meds Home Medications and Allergies Home Medications Medication Instructions Recorded Confirmed Type No Home Medications 02/26/24 02/26/24 History Allergies Allergy/AdvReac Type Severity Reaction Status Date / Time No Known Allergies Allergy Verified 02/26/24 20:38 Vital Signs Vital Signs - 24 hr 03/02/24 16:00 03/02/24 22:10 03/02/24 20:00 Temperature 36.7 C 36.3 C L Pulse Rate 78 71 Respiratory Rate 18 14 Blood Pressure 120/48 L 105/64 Pulse Oximetry 96 100 100 Oxygen Delivery Room Air 03/02/24 21:00 03/03/24 05:53 03/03/24 08:00 Temperature 36.3 C L 36.0 C L Pulse Rate 70 69 Respiratory Rate 18 18 Blood Pressure 102/69 109/68 Pulse Oximetry 100 100 Oxygen Delivery Room Air 03/03/24 14:25 Temperature 36.5 C Pulse Rate 74 Respiratory Rate 18 Blood Pressure 95/71 L Pulse Oximetry 100 Oxygen Delivery Exam Const: General: cooperative, awake, ill appearing chronically, poor hygiene, tired appearing and other (Tearful) Nutritional Appearance: malnourished Orientation/consciousness: oriented to person, oriented to place and oriented to time HENMT: Head: normal to inspection Ears: hearing grossly normal bilaterally Face/Nose/Sinus: Normal external nose present Face and sinus: normal facial exam Mouth: Yes Normal oral and palatal mucosa present Teeth and gingiva: dentition normal Neck: Neck: normal visual inspection Extrem: Left lower extremity: normal capillary refill, edema Details: pitting, ankle Details: normal to inspection, no edema and normal ROM; no tenderness, no swelling, no lacerations and no ecchymosis and foot Details: normal capillary refill, tenderness (Midfoot), edema Location: of the dorsal foot, ecchymosis (Midfoot in to the toes), vascular exam Details: dorsalis pedis pulse present (Faintly palpable) and motor-sensory exam light-touch abnormal; no abrasions, no lacerations and no crepitus; abnormal to inspection and abnormal ROM Results Labs 03/03/24 07:04 03/03/24 07:04 Labs: Abnormal lab results 03/03/24 Range/Units 07:04 RBC 3.29 L (4.2-5.4) M/mm3 Hgb 10.7 L (12.0-15.0) g/dL Hct 32.3 L (37.0-47.0) % Sodium 135 L (137-145) mmol/L H & H 02/26/24 02/27/24 02/28/24 Range/Units 16:18 05:34 02:18 Hgb 14.6 D 12.6 11.5 L (12.0-15.0) g/dL Hct 40.7 35.8 L 34.5 L (37.0-47.0) % 02/29/24 03/01/24 03/02/24 Range/Units 04:30 04:13 06:02 Hgb 11.7 L 11.2 L 11.4 L (12.0-15.0) g/dL Hct 33.9 L 32.8 L 32.8 L (37.0-47.0) % 03/03/24 Range/Units 07:04 Hgb 10.7 L (12.0-15.0) g/dL Hct 32.3 L (37.0-47.0) % All other labs normal.
--- NOTE | 2024-03-03 16:19 | P.DS_ITS ---
DS: Admitting Diagnosis Discharge Date 03/03/2024 Admitting Diagnosis seizure DS: Discharge Diagnosis Discharge Diagnosis (1) Alcohol related seizure: Code(s): R56.9 - Unspecified convulsions Status: Acute (2) Acute hyponatremia: Code(s): E87.1 - Hypo-osmolality and hyponatremia Status: Acute (3) Acute hypokalemia: Code(s): E87.6 - Hypokalemia Status: Acute (4) Abnormal ECG: Code(s): R94.31 - Abnormal electrocardiogram [ECG] [EKG] Status: Acute (5) QT prolongation: Code(s): R94.31 - Abnormal electrocardiogram [ECG] [EKG] Status: Acute DS: Summary Hospital Course Hospital Course: # Seizure: likely secondary to either hyponatremia or alcohol withdrawal. not on any anti epileptic drugs. In management of sodium as below continue seizure precautions she is currently on scheduled Librium and p.r.n. Ativan. Will slowly taper adn will stop as op basis Neurologist is following, appreciate neurologist input # Hyponatremia: patient presented with sodium of 118 treated with isotonic fluids sodium increased to quickly to 128. changed to dextrose. Repeat sodium was 126. Continue D5 for another 4 hours and recheck BMP and then manage accordingly. patient is a heavy beer drinker Nephrology has been consulted. Sodium level stable # Elevated troponin: slightly elevated troponin with normal EKG with no chest pain. Possible Myocardial injury due alcohol intoxication, but given the findings of The apical inferior wall, and apical anterior wall are hypokinetic on echocardiogram, patient may have NSTEMI Continue aspirin check echocardiogram Summary 1. Complete two-dimensional, color flow and Doppler transthoracic echocardiogram is performed. 2. Left ventricular chamber dimension is normal. 3. Left ventricular systolic function is normal, estimated at 65-70%. 4. There is mildly increased left ventricular wall thickness. 5. The left ventricular diastolic function is grade I diastolic dysfunction. 6. The apical cap is akinetic. 7. The apical inferior wall, and apical anterior wall are hypokinetic. 8. Left atrial chamber dimension is mildly enlarged. 9. There is mild tricuspid valve regurgitation. 10. There is mild pulmonic regurgitation. consult cardiology telemetry monitoring Appreciate permanent mold supervisor's input status post cardiac catheterization 02/28/2024 Left main without any significant obstructive disease. Left anterior descending with mild luminal irregularities. Left circumflex 10% stenosis in ostial left circumflex. 10-20% stenosis proximal left circumflex. RCA luminal irregularities Echo findings related to stress-induced cardiomyopathy on aspirin and bb. not on statin as she does drink alcohol. check lipid as op bsais for further risk stratify # QT prolongation: could be secondary to electrolyte abnormalities. Avoid QT prolongation medication and has possible telemetry monitoring # left foot pain: X-ray with metatarsal fracture, orthopedic consultation, walking boot ,ortho consultation adn recommend boot, partial # alcohol dependence: Counseling done. # UTI: On ceftriaxone. Urine culture with no growth Switch to oral and finish the course at home Time Spent with Patient Time attestation: Total time spent providing and/or coordinating discharge services:35 mins Exam Narrative: GENERAL: Alert and oriented x3 no acute distress. Well-nourished. - EYES: EOMI. Anicteric. - HENT: Moist mucous membranes. - LUNGS: Clear to auscultation bilateral ly, no wheezing, rhonchi, or rales. - CARDIOVASCULAR: Regular rate and rhyth m. No murmur. No JVD. - ABDOMEN: Soft, non-tender and non-dist ended. No palpable masses. - EXTREMITIES: No edema. Peripheral puls es 2+. Non-tender. - NEUROLOGIC: No focal neurological defi cits. CN II-XII grossly intact. - PSYCHIATRIC: Awake, Alert and oriented x3. mood and affect, stable - SKIN: No rashes or lesions. Warm. - LYMPH: No cervical lymphadenopathy. DS: Data Data Completed and Pending Labs on day of discharge: Labs from last 24 hours 03/03/24 07:04 WBC 5.6 RBC 3.29 L Hgb 10.7 L Hct 32.3 L MCV 98.2 MCH 32.5 MCHC 33.1 RDW 12.7 Plt Count 262 MPV 9.9 Sodium 135 L Potassium 3.7 Chloride 102 Carbon Dioxide 24 Anion Gap 9 BUN 12 Creatinine 0.70 Estim Creat Clear Calc 67 Estimated GFR > 60 Glucose 103 Calcium 9.5 Magnesium 1.7 Total Bilirubin 0.4 AST 27 ALT 28 Alkaline Phosphatase 66 Total Protein 7.0 Albumin 4.1 Imaging Radiologist's impression: ITS Impressions Head CT 02/26/24 16:02 IMPRESSION: 1. Normal brain. Chest X-Ray 02/26/24 16:04 IMPRESSION: 1. No acute cardiopulmonary disease. Foot X-Ray 02/29/24 21:42 IMPRESSION: Subacute fractures of the proximal second and third tarsal and distal fourth metatarsal are suspected for which traumatic history is needed. Diffuse bony demineralization and forefoot soft tissue swelling. Discharge Plan Discharge Attending physician on discharge: Janes Hernandez Consulting providers: Caren Olson; Abrahan Moore; Reid Jones; Jarocho Sandoval; George Grullon Discharging Clinician: Janes Hernandez Anticipated Discharge Date/Time: 03/03/24 16:27 Patient Disposition: Home, Self-Care Activity: may shower and follow weight bearing status Diet: regular Discharge Instructions: Seizure Orthopedic Recommendations Dr. George Grullon/Sarah Alston, HOWIE [phone] * Partial weight-bearing on heel if utilizing postop shoe. * Weightbearing as tolerated with fracture boot. * Walker for fall precautions. * Proper shoe wear to prevent wounds and skin breakdown. * Elevate left lower extremity to assist with swelling. * Ice. * Contact our office upon discharge to set up an appointment for 6 weeks from now for new radiographs to be obtained and to advance physical therapy and weight-bearing status. Patient Instructions: Antibiotic Form, Pain Management (DC) Stand Alone Forms: General Discharge Information Follow-up/Referrals: PHYSICIAN,INFECTION CONTROL MANAGER [Primary Care Provider] - 1 Week (PCP) Sarah Cowan FNP [Advanced Practice Nurse] - 6 Weeks (Call our office upon discharge for new x-rays and to advance activity. Contact [phone].) Discharge Medications: New thiamine HCl (vitamin B1) [Vitamin B-1] 100 mg Tablet 100 mg PO QAM Qty: 30 0RF aspirin 81 mg Tablet,Delayed Release (Dr/Ec) 81 mg PO QAM Qty: 30 0RF chlordiazepoxide HCl 25 mg Capsule 25 mg PO DAILY Qty: 2 0RF folic acid 1 mg Tablet 1 mg PO DAILY Qty: 30 0RF cefdinir 300 mg Capsule 300 mg PO Q12HR Qty: 6 0RF metoprolol tartrate 25 mg tablet 12.5 mg PO BID Qty: 30 0RF Date of admission: 02/26/24 18:44 Primary Care Provider: PHYSICIAN,INFECTION CONTROL MANAGER Admitting Provider: Karthik Bliss Attending physician on admission: Karthik Bliss Condition: Improved
== END 2024-03-03 17:41 | disposition home or self-care (01) | DRG 192 ==
LOC: ANHED 15:40 → ANHICU 19:13 → ANHIMU 02-27 18:42 → ANH3MEDSUR 03-03 16:29 → ANHIMU 03-05 11:56
PROVIDERS: Internal Medicine; Admitting Provider Internal Medicine; Emergency Provider Emergency Medicine; Visit Provider Internal Medicine
PROC: 4A023N7 Measurement of Cardiac Sampling and Pressure, Left Heart, Percutaneous Approach (ICD-10-PCS; CPT 93452; principal; 2024-02-28 14:25)
DX: I51.81 Takotsubo syndrome (principal); F10.139 Alcohol abuse with withdrawal, unspecified; G40.89 Other seizures; E87.1 Hypo-osmolality and hyponatremia; S92.342A Displaced fracture of fourth metatarsal bone, left foot, initial encounter for closed fracture; S92.322D Displaced fracture of second metatarsal bone, left foot, subsequent encounter for fracture with routine healing; S92.332D Displaced fracture of third metatarsal bone, left foot, subsequent encounter for fracture with routine healing; X58.XXXA Exposure to other specified factors, initial encounter; E87.6 Hypokalemia; E83.52 Hypercalcemia; Z92.21 Personal history of antineoplastic chemotherapy; Z85.118 Personal history of other malignant neoplasm of bronchus and lung; F17.210 Nicotine dependence, cigarettes, uncomplicated; Z28.21 Immunization not carried out because of patient refusal; Z90.2 Acquired absence of lung [part of]; F41.9 Anxiety disorder, unspecified; F32.A Depression, unspecified; R94.31 Abnormal electrocardiogram [ECG] [EKG]; N39.0 Urinary tract infection, site not specified; Z91.199 Patient's noncompliance with other medical treatment and regimen due to unspecified reason
CPT/HCPCS: 36415; 70450; 71046; 73630; 80048; 80053; 80307; 81001; 82077; 82306; 82550; 82607; 82746; 82948; 83036; 83735; 83970; 84100; 84295; 84443; 84484; 85025; 85027; 87040; 87086; 87641; 93005; 93306; 93458; 96361; 96365; 96375; 97110; 97116; 97161; 97165; 97530; 97535; 99285; A9270; C1769; C1887; C1894; J0696; J1644; J1650; J2003; J2060; J2305; J2405; J3010; J3360; J7030; J7040; J7070; L2116